=== PATIENT | female | born 1955 | race Caucasian/White ===

== ENCOUNTER → 2017-10-15 08:43 | Outpatient (CLI) | payer OTHER, SELFPAY ==
--- NOTE | 2017-10-15 09:00 | XR_ITS ---
XR DEXA axial skeleton HISTORY: ITS.REASON: OSTEOPOROSIS ORDERING PHYSICIAN: Jose L Stephens MD PATIENT AGE: 62 years COMPARISON: 06/17/2014 FINDINGS: The BMD measured at the AP Spine L1-L4 is 0.719 g/cm squared with a T score of -3.8. This is considered Osteoporotic according to the World Health Organization criteria. Fracture risk is high. Treatment is advised. The mean density of the hips has a T score of -3.6 also consistent with osteoporosis. The L-spine density has decreased by 4% and the T-spine density has decreased by 5.5% compared to the previous exam. IMPRESSION: Osteoporosis with high fracture risk. Recommend treatment and follow-up exam October 2018
== END ==
PROVIDERS: PCP Family Medicine; Visit Provider Family Medicine
DX: M81.0 Age-related osteoporosis without current pathological fracture (principal); Z13.820 Encounter for screening for osteoporosis
CPT/HCPCS: 77080

== ENCOUNTER → 2019-10-16 08:11 | Outpatient (CLI) | payer MEDICARE, BC, SELFPAY ==
--- NOTE | 2019-10-16 08:19 | MM_ITS ---
PROCEDURE: MM DIG SCREENING MAMM BI W/CAD CLINICAL INDICATION: SCREENING There is no personal or family history of breast cancer COMPARISON: [facility] DIGITAL MAMM-SCREEN BILATERAL from 06/19/2012 [facility] DIG MAMM-SCREEN SALOME from 06/23/2013 [facility] DIG MAMM-SCREEN SALOME from 07/12/2015 TECHNIQUE: Standard CC and MLO images and 3D Tomosynthesis was obtained. R2 CAD reviewed. FINDINGS: There is a diffusely dense and heterogenic parenchymal pattern lessening the sensitivity of mammography. Mirza images are most helpful in this type of breast parenchyma. There is no definite new or suspicious lesion in either breast. There are couple of benign-appearing calcifications in each breast. IMPRESSION: Diffusely dense parenchymal pattern with no suspicious lesions seen BI-RAD Category: 2 Benign Finding(s) FOLLOW-UP: 1YR 1 Year Follow-up (A letter has been sent to the patient regarding results of the study.) Dictated by: Dr. Farooq Rodriguez MD 10/18/2019 09:[address] Farooq Rodriguez MD in [place] 10/18/2019 09:04
== END ==
PROVIDERS: PCP Family Medicine; Visit Provider Family Medicine
DX: Z12.31 Encounter for screening mammogram for malignant neoplasm of breast (principal)
CPT/HCPCS: 77063; 77067

== ENCOUNTER → 2020-03-18 09:01 | Outpatient (CLI) | payer MEDICARE, BC, SELFPAY ==
--- NOTE | 2020-03-18 09:04 | XR_ITS ---
PROCEDURE: XR DEXA AXIAL SKELETON CLINICAL HISTORY: OSTEOPOROSIS COMPARISON: DEXAAX XR DEXA axial skeleton from 10/15/2017 FINDINGS: The right hip BMD is 0.492 with a t-score of -3.2. The left hip BMD is 0.480 with a t-score of -3.3. The lumbar spine BMD is 0.815 with a t-score of -2.1. IMPRESSION: This patient is considered osteoporotic according to the World Health Organization criteria. Fracture risk is high. Treatment is advised. Based on these results of follow-up exam is recommended in 1 year Dictated by: Jose Burdick MD 03/18/2020 18:23 Electronically signed by Jose Burdick MD in [place] 03/19/2020 09:41
== END ==
PROVIDERS: PCP Family Medicine; Visit Provider Physician Assistant
DX: M81.0 Age-related osteoporosis without current pathological fracture (principal)
CPT/HCPCS: 77080

== ENCOUNTER 2020-04-12 13:00 | Outpatient (CLI) | payer MEDICARE, BC, SELFPAY ==
[2020-04-12 13:30] VITALS: BP 122/71; PULSE 80; RESP 18; O2SAT 100
== END 2020-04-12 13:30 | disposition home or self-care (01) ==
LOC: INF 13:00
PROVIDERS: Visit Provider Physician Assistant
DX: M81.0 Age-related osteoporosis without current pathological fracture (principal)
CPT/HCPCS: 96372; J0897

== ENCOUNTER → 2020-09-14 07:00 | Outpatient (CLI) | payer MEDICARE, BC, SELFPAY ==
--- NOTE | 2020-09-14 | CA_ITS ---
APPROVED REPORT Exam: Exercise Treadmill Technologist: Emani Weller, Ht: 5 ft 4 in Wt: 126 lbs BSA: 1.61 m2 HR: 55 bpm BP: 128/68 mmHg Indications: Syncope, Collapse Stress Test Details Test: Leoncio HR Resting HR: 69 bpm Max Heart Rate (APMHR): 154 bpm Max HR Achieved: 169 bpm Target HR (85% APMHR): 130 bpm % of APMHR: 109 Recovery HR: 95 bpm BP Resting BP: 128/68 mmHg Max BP: 170/86 mmHg Recovery BP: 137.0/76.0 mmHg ECG Clinical Exercise duration: 09:42 min Highest Stage Achieved: Exercise capacity: 10.1 METs Stress ECG Conclusion Max Hr - 169; %of PM - 110%; Max B/P- 162/90; METS - 10.1; Test stopped due to SOA and fatigue. No chest pain. Second degree SA block Type II noted in recovery. Normal ST response to exercise. Conclusion - Second degree SA block Type II noted after exercise. otherwise normal GXT. GXT only - no images... Test Summary REST . . . . . . . Sitting REST . . . . . . . Standing REST 04:48 0.0 0.0 69 . 128/ 68 . . Stage 1 01:00 10.0 1.7 98 . . . . Stage 1 02:00 10.0 1.7 120 . . . . Stage 1 03:00 10.0 1.7 121 . 170/ 86 . . Stage 2 01:00 12.0 2.5 130 . . . . Stage 2 02:00 12.0 2.5 140 . . . . Stage 2 03:00 12.0 2.5 144 . 162/ 90 . . Stage 3 01:00 14.0 3.4 149 . . . . Stage 3 02:00 14.0 3.4 154 . . . . Stage 3 03:00 14.0 3.4 155 . 162/ 90 . . Stage 4 00:42 16.0 4.2 167 . . . Stop exercise at 09:42 RECOVERY 01:00 0.0 0.0 155 . 140/ 80 . . RECOVERY 02:00 0.0 0.0 129 . 140/ 80 . . RECOVERY 03:00 0.0 0.0 114 . 136/ 76 . . RECOVERY 04:00 0.0 0.0 105 . 136/ 76 . . RECOVERY 05:00 0.0 0.0 95 . 137/ 76 . . RECOVERY 05:26 0.0 0.0 96 . 137/ 76 . . Electronically signed by : Dustin Reese, 09/23/2020 20:58:47
--- NOTE | 2020-09-14 07:18 | CA_ITS ---
APPROVED REPORT EXAM: Comprehensive 2D, Doppler, and color-flow Echocardiogram Car Starter: Kasie Ballard RVT Ht: 5 ft 4 in Wt: 126lbs BSA: 1.61 BP: 120/80 mmHg Indications: SYNCOPE 2D Dimensions LVOT 2.31 cm (M/F) 1.5-2.5 M-Mode Dimensions RVDd 2.98 cm (0.9-2.6) LA Diam 2.99 cm (1.9-4.0) LVDd 4.38 cm (3.5-5.7) Ao Diam 3.07 cm (2.0-3.7) LVDs 3.18 cm (3.5-5.7) IVSd 1.14 cm (0.6-1.1) PWd 0.97 cm (0.6-1.1) EF (Teich) 53.60% FS 27.40% EDV (Teich) 86.80 mL ESV (Teich) 40.30 mL LV Diastology E Decel Time 150.00 (160-240 msec) E/A Ratio 0.8 MED E' 11.20 (< 7 cm/sec) E'/MED E' Ratio 3.86 (>14) LAT E' 14.10 (<10 cm/sec) E/LAT E' Ratio 3.06 (>14) Aortic Valve AI PHT 1343.00 ms Mitral Valve MV E Max Daniel. 43.00 (40-130 cm/s) MV A Velocity 52.00 (40-130 cm/s) E/A Ratio 0.83 MV Decel. Time 150.00 (160-240 ms) MV PHT 44.00 ms Pulmonary Valve PV Peak Velocity 73.00 (50-150 cm/s) Tricuspid Valve TR P. Velocity 214.00 cm/s RAP Estimate 10.00 mmHg RVSP 28.30 mmHg Left Ventricle Left atrium is mildly enlarged, left ventricle is normal size, mild concentric left ventricular hypertrophy, visually estimated ejection fraction 55% with no regional wall motion abnormality, grade 1 diastolic dysfunction seen without tissue Doppler evidence of raise left atrial pressure. Right Ventricle Right atrium is normal size, right ventricle is mildly enlarged with normal contractility. Atria Intra-atrial septum is intact, there is no flow across the interatrial septum. Aortic Valve Aortic valve is thickened and calcified leaflet continue to display mobility, there is no aortic stenosis, there is mild aortic insufficiency. Mitral Valve Mitral valve leaflets are minimally thickened, there is mild mitral regurgitation. Tricuspid Valve Tricuspid valve is grossly normal, there is mild tricuspid regurgitation, tricuspid regurgitation jet velocity is inadequate for calculation of the right ventricular systolic pressure. Pulmonic Valve Pulmonic valve is poorly visualized. Great Vessels Aortic root is normal size. Pericardium No significant pericardial effusion noted. Conclusion 1. Mildly enlarged left atrium, normal left ventricular size, mild concentric left ventricular hypertrophy, visually estimated ejection fraction 55% with no regional wall motion abnormality, grade 1 diastolic dysfunction seen without tissue Doppler evidence of raise left atrial pressure. 2. Thickened and calcified aortic valve without aortic stenosis, there is mild aortic insufficiency. 3. Mild mitral and tricuspid regurgitation. 4. No significant pericardial effusion noted. Electronically signed by : Cristobal Guthrie, 09/15/2020 06:11:20
[2020-09-14 07:30] LABS: Basophils # 0.1 K/mm3 (0-0.2); Basophils % 0.8 % (0.1-2.0); Eosinophils # 0.2 K/mm3 (0.0-0.4); Eosinophils % 3.3 % (0.1-12.0); Hematocrit 47.6 % (37.0-47.0); Hemoglobin 16.1 g/dL (12.2-16.2); Lymphocytes # 2.3 K/mm3 (0.7-4.5); Lymphocytes % 35.7 % (10-50); Mean Corpuscular HGB Conc 33.9 g/dL (31.8-35.4); Mean Corpuscular Hemoglobin 32.2 pg (27.0-31.2); Mean Platelet Volume 7.4 fl (7.4-10.4); Monocytes # 0.5 K/mm3 (0.1-1.0); Monocytes % 7.5 % (1.7-9.3); Neutrophils # 3.4 K/mm3 (1.8-7.8); Neutrophils % 52.6 % (37.0-80.0); Platelet Count 228 K/mm3 (142-424); Red Blood Count 5.02 M/mm3 (4.20-5.40); Red Cell Distribution Width 13.4 % (11.5-17.5); White Blood Count 6.5 K/mm3 (4.8-10.8)
[2020-09-14 07:40] LABS: Alanine Aminotransferase 41 U/L (12-78); Albumin Level 4.4 g/dl (3.5-5.0); Albumin/Globulin Ratio 1.3 (1.1-1.8); Alkaline Phosphatase 58 U/L (38-126); Anion Gap 8.3 mEq/L (5-15); Aspartate Amino Transferase 82 U/L (14-36); Bilirubin,Total 0.6 mg/dl (0.2-1.3); Blood Urea Nitrogen 20 mg/dl (7-17); Calcium 9.5 mg/dl (8.4-10.2); Carbon Dioxide 32 mmol/L (22.0-30.0); Chloride 101 mmol/L (98-107); Chol/HDL Ratio 3.3 (1-3.5); Cholesterol 204 mg/dl (140-200); Estimated Glomerular Filt Rate 72 ml/min (>60); GFR (African American) 87 ML/MIN (>60); Globulin 3.4 g/dL (1.3-3.2); Glucose 105 mg/dl (74-100); HDL Cholesterol 62 mg/dl (40-60); Potassium 4.3 mmoL/L (3.5-5.1); Sodium 137 mmol/L (136-145); Total Protein,Serum 7.8 g/dl (6.3-8.2); Triglycerides 94 mg/dl (30-150); VLDL Cholesterol 19 mg/dL (0-40)
[2020-09-14 07:51] LABS: Direct LDL Cholesterol 101.43 mg/dL (100-129)
[2020-09-14 08:13] LABS: Thyroid Stimulating Hormone 4.44 uIU/mL (0.465-4.68)
== END ==
PROVIDERS: PCP Family Medicine; Visit Provider Family Medicine
DX: R55 Syncope and collapse (principal); E78.00 Pure hypercholesterolemia, unspecified; I49.9 Cardiac arrhythmia, unspecified; I25.10 Atherosclerotic heart disease of native coronary artery without angina pectoris
CPT/HCPCS: 36415; 80053; 80061; 84443; 85025; 93017; 93306

== ENCOUNTER → 2020-09-21 09:20 | Outpatient (POV) | payer MEDICARE, BC, SELFPAY | PROVIDERS: Visit Provider Dermatology | DX: Z00.00 Encounter for general adult medical examination without abnormal findings (principal) ==

== ENCOUNTER → 2020-09-23 11:50 | Outpatient (CLI) | payer MEDICARE, BC, SELFPAY | PROVIDERS: PCP Family Medicine; Visit Provider Internal Medicine Cardiovascular Disease | DX: I35.1 Nonrheumatic aortic (valve) insufficiency (principal); R42 Dizziness and giddiness; R55 Syncope and collapse; R94.31 Abnormal electrocardiogram [ECG] [EKG] | CPT/HCPCS: 93270 ==

== ENCOUNTER → 2020-09-30 09:15 | Outpatient (CLI) | payer MEDICARE, BC, SELFPAY ==
--- NOTE | 2020-09-30 09:16 | CA_ITS ---
APPROVED REPORT [facility]: DRAIO Laterality: Bilateral Study Quality: Adequate Indications: dizziness with syncopal episode Doppler Spectral Velocity Analysis ECA (R) 93.00/18.90 cm/s ECA (L) 90.50/17.60 cm/s dICA (R) 88.60/36.50 cm/s dICA (L) 68.50/27.70 cm/s Kathy (R) 97.40/37.70 cm/s Kathy (L) 85.50/42.10 cm/s pICA (R) 75.50/30.90 cm/s pICA (L) 57.80/27.70 cm/s pCCA (R) 89.30/25.80 cm/s dCCA (L) 76.70/28.30 cm/s Vert (R) 41.50/17.60 cm/s pCCA (L) 82.30/28.30 cm/s ICA/CCA 1.08 Vert (L) 69.80/27.00 cm/s ICA/CCA 1.22 Findings No hemodynamically significant stenosis observed. Antegrade bilateral vertebral flow observed. Normal study with 0-20% stenosis noted bilaterally with tortuosity of bilateral distal Internal carotid arteries. Left thyroid nodule and enlargement. Conclusion No hemodynamically significant stenosis observed. Antegrade bilateral vertebral flow observed. Normal study with 0-20% stenosis noted bilaterally with tortuosity of bilateral distal Internal carotid arteries. Left thyroid nodule and enlargement. Dedicated thyroid ultrasound may provide further evaluation Electronically signed by : Jose Burdick MD 09/30/2020 18:58:14
== END ==
PROVIDERS: PCP Family Medicine; Visit Provider Internal Medicine Cardiovascular Disease
DX: I35.1 Nonrheumatic aortic (valve) insufficiency (principal); R42 Dizziness and giddiness; R55 Syncope and collapse; R94.31 Abnormal electrocardiogram [ECG] [EKG]
CPT/HCPCS: 93880

== ENCOUNTER → 2020-09-30 10:08 | Outpatient (CLI) | payer SELFPAY ==
--- NOTE | 2020-09-30 10:09 | CT_ITS ---
PROCEDURE: CT HEART W CALCIUM SCORE CLINICAL HISTORY: eval for cad COMPARISON: No exams were available for comparison TECHNIQUE: Axial images obtained with sagittal and coronal reformats. All CT scans at the facility use one or more dose reduction, viz: automated exposure control, ma/kV adjustment per patient size (including targeted exams where dose is matched to indication, i.e. head), or iterative reconstruction technique. FINDINGS: Coronary artery calcium score is 0. No identifiable calcific atherosclerotic plaque with very low cardiovascular disease risk. Incidental note is made of a 10 mm hypodensity in the right hepatic lobe nonspecific. IMPRESSION: No identifiable calcific atherosclerotic plaque with very low cardiovascular disease risk Dictated by: Jose Burdick MD 10/01/2020 12:50 Jose Burdick MD in [place] 10/01/2020 12:50
== END ==
PROVIDERS: PCP Family Medicine; Visit Provider Internal Medicine Cardiovascular Disease
DX: Z13.6 Encounter for screening for cardiovascular disorders (principal); R42 Dizziness and giddiness; I35.1 Nonrheumatic aortic (valve) insufficiency; R55 Syncope and collapse; R94.31 Abnormal electrocardiogram [ECG] [EKG]
CPT/HCPCS: 75571

== ENCOUNTER 2020-10-13 09:45 | Outpatient (CLI) | payer MEDICARE, BC, SELFPAY ==
[2020-10-13 10:15] VITALS: BP 119/70; PULSE 74; RESP 18; TEMP 36.7; O2SAT 98
== END 2020-10-13 10:30 | disposition home or self-care (01) ==
LOC: INF 09:55
PROVIDERS: Visit Provider Physician Assistant
DX: M81.0 Age-related osteoporosis without current pathological fracture (principal)
CPT/HCPCS: 96372; J0897

== ENCOUNTER → 2020-10-18 10:59 | Outpatient (CLI) | payer MEDICARE, BC, SELFPAY ==
--- NOTE | 2020-10-18 11:01 | US_ITS ---
PROCEDURE: US THYROID CLINICAL INDICATION: THYROID NODULE Thyroid nodule seen on recent carotid ultrasound COMPARISON: US CA CAROTID DUPLEX BI from 09/30/2020 FINDINGS: Right lobe: The right of the thyroid gland is small. There is a 5 millimeter by 6 millimeter x 4 millimeter isoechoic choose mildly hypoechoic nodule in the posterior aspect of the right lobe of the thyroid gland. This could represent a parathyroid. There is a 3 millimeter x 4 millimeter x 2 millimeter cystic lesion in the right lobe of the thyroid gland. Left lobe: Left lobe is borderline small in size. There is a 1.8 x 1.1 x 1.7 centimeter isoechoic high echogenicity nodule with small and cystic components. The posterior margin is not well visualized on ultrasound. There are no echogenic foci. There is 1 area marked hypoechogenicity on transverse image. The appearance is consistent with TI-RAD 3, mildly suspicious. Fine needle aspiration biopsy is recommended for mildly suspicious nodules greater than or equal to 2.5 centimeters in size. Follow-up is recommended for nodules greater than or equal to 1.5 centimeters in size at 1, 3, and 5 years to monitor for development of additional suspicious findings.. There is a 1.9 x 1.4 by 2.0 centimeter heterogeneous nodule with lobular margins and the regional area of marked hypoechogenicity. There is internal blood flow. This appearance is consistent with Ti- RADS 4, moderately suspicious, fine-needle aspiration biopsy is recommended. Markedly heterogeneous nodule with internal blood flow and lobulated margins small areas of marked hypoechogenicity versus fluid. Isthmus: Normal IMPRESSION: 1. There is a 1.9 by 1.4 x 2.0 centimeter moderately suspicious nodule in the left lobe of the thyroid gland. Fine needle aspiration biopsy is recommended. 2. There is a 1.8 x 1.1 x 1.7 Centimeter mildly suspicious nodule in the left lobe of the thyroid gland. Ultrasound follow-up is recommended as described above. 3. The right thyroid lobe is smaller than normal. 4. No additional suspicious thyroid nodules. Dictated by: Shauna Cristobal MD 10/18/2020 18:11 Shauna Cristobal MD in [place] 10/18/2020 18:11
== END ==
PROVIDERS: PCP Family Medicine; Visit Provider Nurse Practitioner Family
DX: E04.1 Nontoxic single thyroid nodule (principal)
CPT/HCPCS: 76536

== ENCOUNTER → 2020-11-09 09:32 | Outpatient (CLI) | payer MEDICARE, BC, SELFPAY ==
--- NOTE | 2020-11-09 09:43 | US_ITS ---
PROCEDURE: US FNA THYROID CLINICAL INDICATION: LT THYROID NODULE COMPARISON: US US THYROID from 10/18/2020 FINDINGS: Pre biopsy ultrasound demonstrating 2 dominant nodules on the left. Following time-out procedure and obtaining informed consent under aseptic conditions and local anesthesia with 1 percent lidocaine nodule A in the lower pole was sampled. Three passes were made with 21 gauge needle. Then, nodule B with sampled in the upper pole. Three samples were obtained with 21 gauge needle. The patient tolerated the procedure well without evidence of immediate complication. Cytology: Both nodules A and B were negative for malignancy consistent with a benign follicular nodules IMPRESSION: Uneventful ultrasound-guided FNA of left thyroid nodules x2 both negative for malignancy. Dictated by: Jose Burdick MD 11/26/2020 09:10 Jose Burdick MD in [place] 11/26/2020 09:10
== END ==
PROVIDERS: PCP Family Medicine; Visit Provider Otolaryngology
DX: R22.1 Localized swelling, mass and lump, neck (principal); E04.1 Nontoxic single thyroid nodule
CPT/HCPCS: 10005; 76536; 88173

== ENCOUNTER → 2021-03-28 13:17 | Outpatient (CLI) | payer MEDICARE, BC, SELFPAY ==
--- NOTE | 2021-03-28 13:17 | US_ITS ---
PROCEDURE: US THYROID CLINICAL INDICATION: thyroid nodule follow-up thyroid nodule Follow-up FNA COMPARISON: US US THYROID from 10/18/2020 US US FNA THYROID from 11/09/2020 FINDINGS: Right lobe is 3.7 x 1.9 x 2.6 cm. In the upper pole there is a stable 6 mm heterogeneous nodule and a 7 mm slightly hypoechoic nodule both appear stable. The left lobe is 4 x 2 by 2.6 cm. Heterogeneous nodule noted in the upper pole at 19 x 11 mm unchanged.. In the lower pole there is a 2.2 x 1.8 cm nodule heterogeneous. Not significantly changed. IMPRESSION: No change bilateral thyroid nodules Dictated by: Jose Burdick MD 03/28/2021 18:09 Jose Burdick MD in [place] 03/28/2021 18:09
== END ==
PROVIDERS: PCP Family Medicine; Visit Provider Otolaryngology
DX: E04.1 Nontoxic single thyroid nodule (principal)
CPT/HCPCS: 76536

== ENCOUNTER 2021-04-12 10:29 | Outpatient (CLI) | payer MEDICARE, BC, SELFPAY ==
[2021-04-12 10:41] VITALS: BP 100/61; PULSE 80; RESP 16; TEMP 36.7; O2SAT 96
== END 2021-04-12 10:45 | disposition home or self-care (01) ==
LOC: INF 10:29
PROVIDERS: Visit Provider Family Medicine
DX: M81.0 Age-related osteoporosis without current pathological fracture (principal)
CPT/HCPCS: 96372; J0897

== ENCOUNTER → 2021-08-30 09:43 | Outpatient (CLI) | payer MEDICARE, OTHER, SELFPAY | PROVIDERS: PCP Family Medicine; Visit Provider Nurse Practitioner | DX: U07.1 COVID-19 (principal) | CPT/HCPCS: C9803; U0003; U0005 ==

== ENCOUNTER → 2021-09-01 08:10 | Outpatient (CLI) | payer MEDICARE, OTHER, SELFPAY ==
[2021-09-01] VITALS (9 sets, daily range): BP systolic 108–129; BP diastolic 58–84; PULSE 57–80; RESP 16; O2SAT 97–99
== END ==
PROVIDERS: PCP Family Medicine; Visit Provider Family Medicine
DX: U07.1 COVID-19 (principal); Z23 Encounter for immunization
CPT/HCPCS: 96365

== ENCOUNTER 2021-10-17 15:16 | Outpatient (CLI) | payer MEDICARE, OTHER, SELFPAY ==
[2021-10-17 15:31] VITALS: BP 136/78; PULSE 79; RESP 18; TEMP 36.6; O2SAT 98
== END 2021-10-17 15:31 | disposition home or self-care (01) ==
LOC: INF 15:17
PROVIDERS: PCP Family Medicine; Visit Provider Family Medicine
DX: M81.0 Age-related osteoporosis without current pathological fracture (principal)
CPT/HCPCS: 96372; J0897

== ENCOUNTER → 2022-04-13 09:13 | Outpatient (CLI) | payer MEDICARE, OTHER, SELFPAY ==
--- NOTE | 2022-04-13 09:16 | XR_ITS ---
FINAL REPORT CLINICAL HISTORY: osteoporosis COMPARISON: March 18, 2020 FINDINGS: DEXA BONE DENSITY AXIAL SKELETON Using L1-4, the bone mineral density of the spine is 0.961 g/cm2, corresponding to T-score of -0.8. Previously measured 0.815 g/cm2, corresponding to T-score of -2.1. Using the left hip, the bone mineral density of the femoral neck is 0.468 g/cm2, corresponding to a T-score of -3.4. Previously measured 0.480 g/cm2, corresponding to T-score of -3.3. NOTE: T-score: Standard deviation compared with peak bone mass of young adult mean. *Following the recommendations of the International Society of Bone densitometry, classification of hip BMD is based on the lower of two T-scores; total hip or femoral neck. IMPRESSION: Osteoporosis: Lowest T-score is at or below -2.5. This patient's T-score meets the World Health Organization criteria for osteoporosis. Reviewed, Interpreted and Dictated by Brian Mills III, MD Transcribed by Mónica Krishna Authenticated and [facility]
== END ==
PROVIDERS: PCP Family Medicine; Visit Provider Family Medicine
DX: M81.0 Age-related osteoporosis without current pathological fracture (principal); Z78.0 Asymptomatic menopausal state
CPT/HCPCS: 77080

== ENCOUNTER 2022-04-17 16:14 | Outpatient (CLI) | payer MEDICARE, OTHER, SELFPAY ==
[2022-04-17 16:25] VITALS: BP 156/95; PULSE 58; RESP 18; TEMP 36.6; O2SAT 99
--- NOTE | 2022-04-17 16:40 | XR_ITS ---
PROCEDURE INFORMATION: Exam: XR Left Knee Exam date and time: 04/17/2022 4:41 PM Age: 66 years old Clinical indication: Pain; Knee; Left; Additional info: Injury left knee, C/O left medial knee pain TECHNIQUE: Imaging protocol: Radiologic exam of the Left knee. Views: 3 views. COMPARISON: No relevant prior studies available. FINDINGS: Minimal osteoarthritis of the medial tibiofemoral compartment, manifested predominantly by tiny marginal osteophyte formation. Mild osteoarthritis at the patellofemoral compartment, manifested by tiny marginal osteophyte formation. Joint spaces are overall well preserved. No acute fracture, dislocation, or aggressive skeletal lesion. No joint effusions. No significant soft tissue swelling. IMPRESSION: 1. 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 2. No acute skeletal pathology.
== END 2022-04-17 16:25 | disposition home or self-care (01) ==
LOC: INF 16:15
PROVIDERS: PCP Family Medicine; Visit Provider Family Medicine
DX: M25.562 Pain in left knee (principal); M81.0 Age-related osteoporosis without current pathological fracture
CPT/HCPCS: 73562; 96372; J0897

== ENCOUNTER → 2022-07-18 13:58 | Outpatient (POV) | payer MEDICARE, OTHER, SELFPAY | PROVIDERS: Visit Provider Dermatology | DX: Z00.00 Encounter for general adult medical examination without abnormal findings (principal) ==

== ENCOUNTER → 2022-07-28 09:43 | Outpatient (CLI) | payer MEDICARE, OTHER, SELFPAY ==
--- NOTE | 2022-07-28 09:47 | MM_ITS ---
PROCEDURE INFORMATION: Exam: MG Bilateral Screening 3D Mammography Exam date and time: 07/28/2022 9:38 AM Age: 67 years old Clinical indication: Screening mammogram TECHNIQUE: Imaging protocol: Bilateral Screening tomosynthesis and 2D mammography including computer-aided detection (CAD) when performed. COMPARISON: MG MM DIG SCREENING MAMM BI W/CAD 10/16/2019 8:30 AM FINDINGS: MAMMOGRAPHY: Breast composition: The breast is heterogeneously dense, which may obscure small masses. Mass: None. Architectural distortion: No new or suspicious architectural distortion. Calcifications: No new or suspicious calcifications are present Asymmetric density: No new or suspicious asymmetric density is present Skin thickening: None. Axillary adenopathy: None. IMPRESSION: No mammographic evidence of malignancy. Recommend annual screening mammography unless otherwise clinically indicated. ASSESSMENT: BI-RADS category 1: Negative
== END ==
PROVIDERS: PCP Family Medicine; Visit Provider Family Medicine
DX: Z12.31 Encounter for screening mammogram for malignant neoplasm of breast (principal)
CPT/HCPCS: 77063; 77067

== ENCOUNTER 2022-10-23 09:40 | Outpatient (CLI) | payer MEDICARE, OTHER, SELFPAY ==
[2022-10-23 09:50] VITALS: BP 135/77; PULSE 75; RESP 18; O2SAT 99
== END 2022-10-23 10:00 | disposition home or self-care (01) ==
LOC: INF 09:41
PROVIDERS: PCP Family Medicine; Visit Provider Family Medicine
DX: M81.0 Age-related osteoporosis without current pathological fracture (principal)
CPT/HCPCS: 96372; J0897

== ENCOUNTER → 2023-04-30 08:52 | Outpatient (CLI) | payer MEDICARE, OTHER, SELFPAY ==
--- NOTE | 2023-04-30 08:54 | XR_ITS ---
FINAL REPORT CLINICAL HISTORY: POST MENOPAUSAL COMPARISON: 04/13/2022 FINDINGS: Using L1-4, the bone mineral density of the spine is 1.002 g/cm2, corresponding to T-score of -0.4, within normal limits but abnormally elevated likely secondary to hypertrophic changes. Previously 0.961 g/cm? with T score of -0.8. Using the left hip, the bone mineral density of the femoral neck is 0.472 g/cm2, corresponding to a T-score of -3.4, consistent with osteoporosis. Previously 0.468 g/cm? with T score of -3.4. Using the right hip, the bone mineral density of the femoral neck is 0.521 g/cm2, corresponding to a T-score of -3.0, consistent with osteoporosis. Previously 0.501 g/cm? with a T score of -3.1. FRAX not reported because patient is being treated for osteoporosis. NOTE: T-score: Standard deviation compared with peak bone mass of young adult mean. *Following the recommendations of the International Society of Bone densitometry, classification of hip BMD is based on the lower of two T-scores; total hip or femoral neck. IMPRESSION: Diminished bone mineral density consistent with osteoporosis. Reviewed, Interpreted and Dictated by Neil Rebollar MD Transcribed by Alexa Cornejo Authenticated and [facility]
== END ==
PROVIDERS: PCP Family Medicine; Visit Provider Family Medicine
DX: M81.0 Age-related osteoporosis without current pathological fracture (principal)
CPT/HCPCS: 77080

== ENCOUNTER 2023-05-08 09:19 | Outpatient (CLI) | payer MEDICARE, OTHER, SELFPAY ==
[2023-05-08 09:32] VITALS: BP 108/68; PULSE 68; RESP 18; TEMP 36.5; O2SAT 99
== END 2023-05-08 09:45 | disposition home or self-care (01) ==
LOC: INF 09:20
PROVIDERS: PCP Family Medicine; Visit Provider Family Medicine
DX: M81.0 Age-related osteoporosis without current pathological fracture (principal)
CPT/HCPCS: 96372; J0897

== ENCOUNTER → 2023-07-31 10:05 | Outpatient (CLI) | payer MEDICARE, OTHER, SELFPAY ==
--- NOTE | 2023-07-31 10:09 | MM_ITS ---
PROCEDURE INFORMATION: Exam: MG Bilateral Screening 3D Mammography Exam date and time: 07/31/2023 10:00 AM Age: 68 years old Clinical indication: Screening examination TECHNIQUE: Imaging protocol: Bilateral Screening tomosynthesis and 2D mammography including computer-aided detection (CAD) when performed. COMPARISON: 1. MG MM DIG SCREENING MAMM BI W/CAD 07/28/2022 9:38 AM 2. MG MM DIG SCREENING MAMM BI W/CAD 10/16/2019 8:30 AM 3. MG DMSB DIG MAMM-SCREEN SALOME 07/12/2015 5:21 PM 4. MG DMSB DIG MAMM-SCREEN [facility]OME 06/23/2013 5:17 PM FINDINGS: MAMMOGRAPHY: Breast composition: The breast is heterogeneously dense, which may obscure small masses. Mass: None. Architectural distortion: No new or suspicious architectural distortion. Calcifications: No new or suspicious calcifications are present Asymmetric density: No new or suspicious asymmetric density is present Skin thickening: None. Axillary adenopathy: None. IMPRESSION: No mammographic evidence of malignancy. Recommend annual screening mammography unless otherwise clinically indicated. ASSESSMENT: BI-RADS category 1: Negative
== END ==
PROVIDERS: PCP Family Medicine; Visit Provider Family Medicine
DX: Z12.31 Encounter for screening mammogram for malignant neoplasm of breast (principal)
CPT/HCPCS: 77063; 77067

== ENCOUNTER → 2023-07-31 14:06 | Outpatient (POV) | payer MEDICARE, OTHER, SELFPAY | PROVIDERS: PCP Family Medicine; Visit Provider Dermatology | DX: Z00.00 Encounter for general adult medical examination without abnormal findings (principal) ==

== ENCOUNTER → 2023-08-16 10:39 | Outpatient (CLI) | payer MEDICARE, OTHER, SELFPAY ==
--- NOTE | 2023-08-16 10:44 | XR_ITS ---
FINAL REPORT CLINICAL HISTORY: Hammertoes, right foot COMPARISON: None FINDINGS: RIGHT FOOT 3 views of the right foot were obtained. There is no acute fracture or dislocation. There is moderate hallux valgus deformity. There are hypertrophic changes of the first MTP. There is a mild plantar spur. There is minimal hammertoe deformity of the second and third digits. Soft tissues are unremarkable. IMPRESSION: Moderate hallux valgus deformity and minimal hammertoe deformity second and third digits. No acute bony abnormality. Reviewed, Interpreted and Dictated by Neil Rebollar MD Transcribed by Alexa Cornejo Authenticated and [facility]
--- NOTE | 2023-08-16 10:44 | XR_ITS ---
FINAL REPORT CLINICAL HISTORY: Hammertoes left foot COMPARISON: None FINDINGS: LEFT FOOT Three views of the left foot demonstrate no acute fracture or dislocation. There is moderate hallux valgus deformity. There are hypertrophic changes of the first metatarsal. There is a small plantar spur. There is minimal hammertoe deformity of the second digit. The soft tissues are unremarkable. IMPRESSION: Moderate hallux valgus and minimal hammertoe second digit. No acute bony abnormality. Reviewed, Interpreted and Dictated by Neil Rebollar MD Transcribed by Alexa Cornejo Authenticated and [facility]
== END ==
PROVIDERS: PCP Family Medicine; Visit Provider Podiatrist
DX: M20.41 Other hammer toe(s) (acquired), right foot (principal); M20.42 Other hammer toe(s) (acquired), left foot
CPT/HCPCS: 73630

== ENCOUNTER 2023-11-06 09:16 | Outpatient (CLI) | payer MEDICARE, OTHER, SELFPAY ==
[2023-11-06 09:30] VITALS: BP 122/79; PULSE 84; RESP 18; O2SAT 100
[2023-11-06] MEDS: DENOSUMAB 60 MG/ML SYRINGE SQ (09:30)
== END 2023-11-06 09:40 | disposition home or self-care (01) ==
LOC: INF 09:16
PROVIDERS: PCP Family Medicine; Visit Provider Family Medicine
DX: M81.0 Age-related osteoporosis without current pathological fracture (principal)
CPT/HCPCS: 96372; J0897

== ENCOUNTER 2024-05-02 08:43 | Outpatient (CLI) | payer MEDICARE, OTHER, SELFPAY ==
--- NOTE | 2024-05-02 08:46 | XR_ITS ---
FINAL REPORT TECHNIQUE: Bone densitometry calculations of the lumbar spine and left hip were obtained. CLINICAL HISTORY: SCREENING COMPARISON: 04/30/2023 FINDINGS: Using L1-4, the bone mineral density of the spine is 1.032 g/cm2, corresponding to T-score of -0.1. Using the left hip, the bone mineral density of the femoral neck is 0.477 g/cm2, corresponding to a T-score of -3.4. NOTE: T-score: Standard deviation compared with peak bone mass of young adult mean. *Following the recommendations of the International Society of Bone densitometry, classification of hip BMD is based on the lower of two T-scores; total hip or femoral neck. IMPRESSION: Diminished bone mineral density of the left hip consistent with osteoporosis. Normal bone mineral density of the lumbar spine, although this likely is artificially elevated secondary to dense sclerosis within the lumbar spine. Reviewed, Interpreted and Dictated by Neil Rebollar MD Transcribed by Salina Austin Authenticated and [facility]
== END 2024-05-02 23:59 | disposition home or self-care (01) ==
LOC: RAD 08:44
PROVIDERS: PCP Family Medicine; Visit Provider Family Medicine
DX: M81.0 Age-related osteoporosis without current pathological fracture (principal)
CPT/HCPCS: 77080

== ENCOUNTER 2024-07-29 10:14 | Outpatient (CLI) | payer MEDICARE, OTHER, SELFPAY ==
--- NOTE | 2024-07-29 10:21 | XR_ITS ---
FINAL REPORT CLINICAL HISTORY: foot pain mainly at MTP/tarsals area, dorsal surface COMPARISON: 08/16/2023 FINDINGS: AP, oblique and lateral views of the right foot were obtained. There is no acute fracture or dislocation. There is advanced degenerative disease of the first metatarsophalangeal joint with hallux valgus deformity. There is no acute soft tissue abnormality. IMPRESSION: Degenerative joint disease with hallux valgus deformity. No acute abnormality. Reviewed, Interpreted and Dictated by Linda Mejia MD Transcribed by Ly Kidd Authenticated and [facility]
== END 2024-07-29 23:59 | disposition home or self-care (01) ==
LOC: RAD 10:16
PROVIDERS: PCP Family Medicine; Visit Provider Podiatrist
DX: M79.671 Pain in right foot (principal)
CPT/HCPCS: 73630

== ENCOUNTER 2024-08-18 15:34 | Outpatient (CLI) | payer MEDICARE, OTHER, SELFPAY ==
--- NOTE | 2024-08-18 15:35 | MR_ITS ---
FINAL REPORT TECHNIQUE: Multiplanar MR of the foot without gadolinium enhancement. CLINICAL HISTORY: Right Foot Pain FINDINGS: Marrow signal: Nonspecific, benign-appearing cystic lesion of the calcaneus measuring 12 mm. Remaining marrow signal is normal. No evidence of stress fracture. Joints: Moderate degenerative changes at the first MTP joint. Mild degenerative changes of the hindfoot. Remaining joints normal. Tendons:Visualized tendons are unremarkable Ligaments:Major ligaments intact. Lisfranc ligament intact. Plantar Fascia: No evidence of tear No cystic or soft tissue mass. IMPRESSION: 1. Scattered degenerative changes. 2. No evidence of stress fracture. 3. No evidence of plantar fasciitis. Reviewed, Interpreted and Dictated by Jonna Meier MD Transcribed by Carolee Rodgers Authenticated and [facility]
== END 2024-08-18 23:59 | disposition home or self-care (01) ==
LOC: RAD 15:35
PROVIDERS: PCP Family Medicine; Visit Provider Podiatrist
DX: M79.671 Pain in right foot (principal)
CPT/HCPCS: 73718

== ENCOUNTER 2025-06-15 11:50 | Outpatient (CLI) | payer MEDICARE, OTHER, SELFPAY ==
--- OUTSIDE RECORDS SUMMARY | 2024-01-14 05:15 | XMS_ITS ---
Author Organization [facility] Address [address] [facility] [address] [place] [id number] Care Team Providers Care Manager Care Name Role Phone Jose L Stephens Primary Care Provider [phone] Allergies No Known Allergies Results Component Value [...] [address] [place] [id number] 01/14/2024 Jose L Stephens Acute UTI N39.0 [...] * SHA MELO LDOB:1955 (70 yo F)Acc No.[id number]:01/14/2024 Progress Notes Patient: Gerald JACQUES SHA Montez Provider: Jacob Stephens M.D. :1955 A ge:68 Y S ex:Female Date:01/14/2024 Address:[address] [place] [address] [place], [place], [id number] Subjective: * Chief Complaints: * 1 . [...] Procedure Codes: 8 1002 Urinalysis, no micro, 536[address] SPECIMEN HANDLING * Follow Up: p rn * Images: Billing Information: * Visit Code: 33925 Office Visit, Est Pt., Level 3. * Procedure Codes: 46060 Urinalysis, no micro. 42507 SPECIMEN HANDLING. * Electronic signature of Katya Stephens MD on 06/15/2025 at 11:54 AM EDT Sign off status: Pending * Provider: Jacob Stephens M.D. Date: 0 01/14/2024 Generated for Ty mott/uYe/Emmieitting on: 1 11:54 AM EDT History and Physical Notes * [...]
--- OUTSIDE RECORDS SUMMARY | 2025-04-06 06:15 | XMS_ITS ---
Author Organization [facility] Address [address] [facility] [address] [facility] [address] [place] [id number] Care Team Providers Care Managed Care Specialist Name Role Phone Jose L Stephens Primary Care Provider [phone] Krysta Meza Unavailable [phone] Allergies Allergen (clinical drug ingredient) Drug/Non Drug Allergy documented on EMR Reaction Allergy Type Onset Date Status Substance with sulfonamide structure and antibacterial mechanism of action (substance) Sulfa Antibiotics Unknown Drug Allergy Active Results Component Value Reference Range Notes Urinalysis - Inhouse Reviewed date:04/06/2025 02:46:16 PM Interpretation: Performing Lab: Notes/Report: Color/Clarity clear yellow Leuk trace Nitrite neg Urobili 3.2 Protein neg pH 6.5 Blood trace- intact Sp. Gr. 1.010 Ketone neg Bili neg Gluc neg P-Culture, Urine Reviewed date:04/09/2025 09:55:48 AM Interpretation:Abnormal Performing Lab: Notes/Report: Test performed by [facility], [employer] [address] [place] [address] , [place] [address] Marcial Byers MD, Lens Silverer CLIA: [id number] Specimen Source Urine - Void Culture, Urine See Below See Microbiol ogy Report Klebsiella pneumoniae >100,000 CFU/ml Klebsiella pneumoniae Sensitivity Panel See Below _ Organism K.pneum Antibiotic INTERP _ Amikacin S Ampicillin R Aztreonam S Cefepime S Cefoxitin S Ceftazidime S Ceftriaxone S Cefuroxime S Ciprofloxacin S Ertapenem S Gentamicin S Imipenem S Levofloxacin S Meropenem S Nitrofurantoin R Piperacillin/Tazo S Tetracycline S Tobramycin S Trimeth/Sulfa S S=SUSCEPTIBLE I=INTERMEDIATE R=RESISTANT REASON FOR VISIT poss UTI, Due for Dexa and mammogram Medications Medication SIG (Take, Route, Frequency, Duration) Notes Start Date End Date Status Vitamin K2 WITH CALCIUM 100 MCG 1 TAB(S) ORALLY ONCE A DAY Active Finacea 15 % 1 sherwin applied topica lly 2 times a day 04/23/2012 Active Vitamin C 500 MG 1 tab(s) orally once a day; Duration: 30 day(s) Active Multivitamin - 1 tab(s) orally once a day; Duration: 30 day(s) Active Vitamin D3 25 MCG (1000 UT) 1 tab(s) ora lly once a day 08/11/2014 Active Vital Signs Weight 127.4 lbs 04/06/2025 Blood pressure systolic 112 mm Hg 04/06/20 25 Blood pressure diastolic 70 mm Hg 025 Heart Rate 73 /min 04/06/2025 Height 64.25 in 04/06/2025 BMI 21.7 kg/m2 04/06/2025 Encounters Encounter Location Date Provider Diagnosis [facility] [address] [place] [id number] 04/06/2025 Krysta Meza UTI (lower urinary tract infection) N39.0 and BMI 21.0-21.9, adult Z68.21 Assessments Encounter Date Diagnosis (ICD Code) Assessment Notes Treatment Notes Treatment Clinical Notes Section Notes 04/06/2025 UTI (lower urinary tract infection) (ICD-10 - N39.0) Drink drink the water. If the culture comes back positive we will send in an antibiotic. Follows up w/ Urology to schedule surgery 04/06/2025 BMI 21.0-21.9, adult (ICD-10 - Z68.21) Plan Of Treatment Treatment Notes Assessment Notes UTI (lower urinary tract infection) Drin k drink the water. If the culture comes back positive we will send in an antibiotic. Follows up w/ Urology to schedule surgery Next Appt Details Follow Up: prn, Reason: Progress Notes * SHA MELO LDOB:1955 (70 yo F)Acc No.[id number]:04/06/2025 Progress Notes Patient: SHA COOK Provider: SONIA Jasso :1955 A ge:69 Y S ex:Female Date:04/06/2025 Address:[address] [place] [address], [facility], [id number] Pcp:Jose L Stephens Subjective: * Chief Complaints: * 1 . poss UTI. 2. Due for Dexa and mammogram. * HPI: U rology: found out recently has pelvic prolapse and had UTI in urology office. Was on Nitrofurantoin x5 days on 03/19.; plan is to sew uterus up. 69 year old female presents with c/o suprapubic pain. c/o Urine Odor. c/o UTI S he states that she had a UTI a few weeks ago. Pt states she thinks she still has one . Denies : frequent urination. D enies : burning sensation.?Denies : urgency. D enies : flank pain. D enies : incontinence. D enies : hematuria.?Denies : fever. * ROS: D ERMATOLOGY: no R jose. n o H ross. G ASTROENTEROLOGY: no N ausea. n o V omiting. n o D iarrhea.? U ROLOGY: no D ifficulty urinating. n o B lood in urine. * Medical History: O steoporosis, Rosacea. * Surgical History: P artial Hysterectomy 05/08/1997. * Family History: F ather: 83 yrs, [...] orally once a day , Taking Vitamin C 500 MG Tablet 1 tab(s) orally once a day , Taking Vitamin K2 WITH CALCIUM 100 MCG TABLET 1 TAB(S) ORALLY ONCE A DAY , Taking Finacea 15 % Gel 1 sherwin applied topically 2 times a day , Discontinued Os-Jeremiah Calcium + D3 500-5 MG-MCG Tablet 1 tab(s) orally bid , Discontinued Prolia 60 MG/ML Solution Prefilled Syringe as directed subcutaneously every 6 months , Discontinued valACYclovir HCl 1 GM Tablet 2 tablet Orally Two times a day , Discontinued metroNIDAZOLE 500 MG Tablet 1 tablet Orally Two times a day , Medication List reviewed and reconciled with the patient * Allergies: S ulfa Antibiotics. Objective: * Vitals: W t: 127.4, Temp: 97.6, BP: 112/70, HR: 73, Nurse: pe, Ht: 64.25, BMI:21.7. * Examination: G eneral Examination: General Appearance: N AD, appears healthy, alert, pleasant.?Heart: R RR. L ungs: n ormal, clear to auscultation. A bdomen: n ormal, bowel sounds present, nontender, soft, no organomegaly or masses, no s uprapubic tenderness. N eurologic Exam: a lert and oriented. S kin: n ormal, no rash. P eripheral pulses:?normal (2+) bilaterally. Assessment: * Assessment: 1. U TI (lower urinary tract infection) - N39.0 (Primary) 2 . B ID 21.0-21.9, adult - Z68.21 Plan: * Treatment: Value Reference Range C ulture, Urine See Below - * S pecimen Source Urine - Void - * S ensitivity Panel See Below - * K lebsiella pneumoniae >100,000 CFU/ml Klebsiella pneumoniae - * Izzy Hernandez 04/09/2025 09:55 :46 AM EDT > See phone encounter ?LAB: Urinalysis - Inhouse (Collection Date & Time - 04/06/2025)* Value Reference Range C olor/Clarity clear yellow * L euk trace * N itrite neg * U robili 3.2 * P rotein neg * p H 6.5 * B lood trace- intact * S p. Gr. 1.010 * K etone neg * B martha neg * G sonam neg * Char Jonse 04/06/2025 11:18 :07 AM EDT > Provider reviewed results while patient in office.Krysta Meza 04/06/2025 02:46:14 PM EDT > Notes: Drink drink the water. If the culture comes back positive we will send in an antibiotic. Follows up w/ Urology to schedule surgery?? * Procedure Codes: G 2211 Complex e/[place], [address] Urinalysis, no micro, 1036F TOBACCO NON- USER, G8420 BMI<30 AND >=22 CALC & DOCU, G8783 BP SCR PRFRM RCMDD DEFIND SCR INTVL, G8752 MOST RECENT SYSTOLIC BP < 140MM HG, G8754 MOST RECENT DIASTOLIC BP < 90MM HG * Follow Up: p rn * Images: Billing Information: * Visit Code: 19212 Office Visit, Est Pt., Level 3. * Procedure Codes: G2211 Complex e/[place]. [address] Urinalysis, no micro. 1036F TOBACCO NON-USER. G8420 BMI<30 AND >=22 CALC & DOCU. G8783 BP SCR PRFRM RCMDD DEFIND SCR INTVL. G8752 MOST RECENT SYSTOLIC BP < 140MM HG. G8754 MOST RECENT DIASTOLIC BP < 90MM HG. * Electronic signature of Lily Meza APRN on 06/15/2025 at 11:54 AM EDT Sign off status: Pending * Provider: SONIA Jasso Date: 0 04/06/2025 Generated for Ty mott/Yue/Emmieitting on: 1 11:54 AM EDT History and Physical Notes * HPI (History of Present Illness) Category Sub-Category Detail Notes Category Not es Urology frequent urination burning sensation flank pain suprapubic pain incontinence hematuria fever urgency Urine Odor UTI She states that she had a UTI a few weeks ago. Pt states she thinks she still has one Examination Category Sub-Category Detail Notes Category Not es General Examination Heart: RRR Lungs: normal, clear to aus cultation Abdomen: normal, bowel sounds present, nontender, soft, no organomegaly or masses, no suprapubic tenderness General Appearance: NAD, appears healthy , alert, pleasant Skin: normal, no rash Neurologic Exam: alert and oriented Peripheral pulses: normal (2+) bilatera lly
--- OUTSIDE RECORDS SUMMARY | 2025-04-14 07:20 | XMS_ITS | Encounter Summary ---
Author Organization [place] [address] Care Team Providers Care Core Man Name Role Phone Unavailable Primary Care Provider Unavailabl e Reason for Visit * In Office Procedure (Routine) - Authorization Not Needed Specialty Diagnoses / Procedures Referred By Rosalio t Referred To Contact Nurse Practitioner / Gynecology Diagnoses Frequency of micturition UDE Procedures ID COMPLX CYSTOMETRO W/VOID PRESS & URETHRAL PROFIL ID COMPLEX UROFLOMETRY ID EMG STDS ANAL/URTL SPHNCTR OTH/THN NDL ID VOID PRESSURE STUDIES INTRAABDOMINAL URODYNAMICS Karla Elder MD [address] [place] [address] Phone: tel: fax: Erin Candelario APRN [address] [place] [address] Phone: tel: fax: Referral ID Status Reason Start Date Expiration Date Visits Requested Visits Authorized [id number] Authorization Not Needed 04/14/2025 04/14/2026 1 1 Encounter Details Date Type Department Care Team (Latest Contact Info) Description 04/14/2025 7:20 AM EDT Procedure visit [facility] Urogynecology [address] [phone] Erin Candelario APRN [address] [place] [address] Female genital prolapse, unspecified type (Primary Dx); JACKIE (stress urinary incontinence, female); OAB (overactive bladder); Urinary frequency Social History Tobacco Use Types Packs/Day Years Used Date Smoking Tobacco: Never Smokeless Tobacco: Never Alcohol Use Standard Drinks/Week Comments Yes 3 (1 standard drink = 0.6 oz pur e alcohol) 3 beers a month Sexually Active Control Partners Comments Not Currently Comments No Sex and Gender Information Value Date Recorded Sex Assigned at Not on file Legal Sex Female 9:33 AM EDT Gender Identity Not on file Sexual Orientation Not on file documented as of this encounter Progress Notes * Erin Candelario APRN - 04/14/2025 7:20 AM EDT Images from the original note were not included. Urodynamic Procedure Note Renuka Mock 1955 Urodynamicist: Erin Candelario APRN Equipment: [employer] Brief History/Indication: Patient is a 69 y.o. female with subjective complaints of overactive bladder, prolapse, and stress incontinence who presents for an urodynamic evaluation. Office Fill Study: Catheter PVR = 400 mL UA cloudy DEAN OF GRADUATE STUDIES negative C&S pending Procedure: The patient was taken to the Urodynamics suite and a free urine flow was obtained followed by catheterization for residual urine. A double-lumen urodynamic catheter was introduced to the bladder for measuring bladder pressure, and for filling. EMG patch electrodes were placed perianally for recording activity of the anal sphincter. A vaginal cather was inserted to record the abdominal pressure. The entire process was displayed and analyzed using the [employer] Urodynamic machine and software. FINDINGS UroFlow: Urine Dip: normal Voided volume: 115 ml PVR: 150 ml Max flow: 8 ml/sec with an average flow rate of 2 ml/sec CMG: pump was not infusing at first, test restarted First sensation: 94 ml First degree: 204 ml Strong desire: 264 ml Max capacity: 346 ml Uninhibited detrusor contraction:yes Leak Point Pressures: CLPP 74 VLPP 122 cm/H2O at 150ml with cough, valsalva, (+) leak, reduction , and sitting CLPP 66 VLPP 36 cm/H2O at 346 ml (max) with cough, valsalva, (+) leak, reduction , and sitting Pressure voiding study: Maximum detrusor pressure at peak flow 23 cm/H2O Peak flow rate 11 ml/sec. Maximum abd pressure at peak flow 37 cm/H2O Flow time 1:19 sec. Maximum vesical pressure at peak flow 58 cm/H2O Voided volume 484 ml. Residual: (Max cap-voided) 0ml. Max Pdet: 31 MUCP: 27, 23, 22 EMG: correlates Assessment: 1) JACKIE with prolapse reduction 2) stage IV vault prolapse (document history of hysterectomy but patient denies) 3) moderate OAB *no longer SA; daughter Keyur present and supportive Plan: Consider consenting Renuka Mock for: Colpectomy (vaginal closure), posterior repair, levator plication, retropubic urethral mesh sling, cystoscopy - POSSIBLE hysteroscopy D&C (2 hours, general, outpatient, 6 weeks off lifting/bathing) - will need OAB medication post op - HOME catheter removal (cynthiana!) Karla Elder MD documented in this encounter Plan of Treatment Upcoming Encounters Date Type Department Care Team (Latest Contact Info) Description 07/14/2025 1:10 PM EST Hospital Encounter [facility] PERIOP [address] [place] [address] Karla Elder MD [address] [place] [id number] 07/14/2025 1:10 PM EST - 07/14/2025 3:35 PM EST Surgery [facility] PERIOP [address] [place] [address] Karla Elder MD [address] [place] [id number] TOTAL COLPECTOMY / COLPOCLESIS 08/25/2025 11:00 AM EST Office Visit [facility] Urogynecology [address] [phone] Erin Candelario APRN [address] [place] [address] Scheduled Procedures Name Priority Associated Diagnoses Date/Ti me TOTAL COLPECTOMY / COLPOCLESIS Female genital prolapse, unspecified type Cystocele, midline Rectocele JACKIE (stress urinary incontinence, female) Abnormal defecation 07/14/2025 1:10 PM EST POSTERIOR REPAIR (RECTOCELE REPAIR) Female genital prolapse, unspecified type Cystocele, midline Rectocele JACKIE (stress urinary incontinence, female) Abnormal defecation 07/14/2025 1:10 PM EST URETHROPEXY USING TENSION FREE VAGINAL TAPE VIA RETROPUBIC SPACE WITH CYSTOSCOPY Female genital prolapse, unspecified type Cystocele, midline Rectocele JACKIE (stress urinary incontinence, female) Abnormal defecation 07/14/2025 1:10 PM EST documented as of this encounter Procedures Procedure Name Priority Date/Time Associated Diagnosis Comments SEP URINALYSIS POC Routine 04/14/2025 7: 37 AM EDT Urinary frequency documented in this encounter Results * (ABNORMAL) SEP URINALYSIS POC (04/14/2025 7:37 AM EDT) UA Color POC Yellow Color 04/14/2025 7:40 AM EDT [facility] Appear POC Clear Clear 04/14/2025 7:40 AM EDT [facility] UROGYNECOLOGY [facility] UA Gluc POC Negative Negative mg/dL 04/14/2025 7:40 AM EDT [facility] Bili POC Negative Negative 04/14/2025 7:40 AM EDT [facility]A Ketones POC Negative Negative mg/dL 04/14/2025 7:40 AM EDT [facility] UA SG POC 1.015 1.001 - 1.035 no units 04/14/2025 7:40 AM EDT [facility] UROGYNECOLOGY [facility] UA Blood POC Trace-Intac t(A) Negative 04/14/2025 7:40 AM EDT [facility] UA pH POC 6.5 5.0 - 8.0 pH 04/14/2025 7:40 AM EDT [facility] UA Protein POC Negative Negative mg/dL 04/14/2025 7:40 AM EDT [facility] UA Urobilinogen POC 0.2 0.2, 1.0 04/14/2025 7:40 AM EDT [facility] UA Nitrite POC Negative Negative 04/14/2025 7:40 AM EDT [facility] Leuk Est POC Negative Negative 7:40 AM EDT [facility] Urine STRUCTURE OF URINARY TRACT PROPER / Unknown 04/14/2025 7:37 AM EDT 04/14/2025 7:40 AM EDT us Erin Candelario BONE GRINDER POINT OF CARE TEST ORDER TERNA Final Result [facility] [place] [address] documented in this encounter Visit Diagnoses Diagnosis Female genital prolapse, unspecified type- Primary JACKIE (stress urinary incontinence, female) Female stress incontinence OAB (overactive bladder) Hypertonicity of bladder Urinary frequency Female genital prolapse, unspecified type Cystocele, midline Rectocele JACKIE (stress urinary incontinence, female) Female stress incontinence Abnormal defecation documented in this encounter
--- OUTSIDE RECORDS SUMMARY | 2025-04-20 11:30 | XMS_ITS | Encounter Summary ---
Author Organization [place] [address] Care Team Providers Care Excellence Coach Name Role Phone Unavailable Primary Care Provider Unavailabl e Reason for Referral * (Routine) - Pending Review Specialty Diagnoses / Procedures Referred By Rosalio t Referred To Contact Diagnoses Cystocele, midline Stress incontinence Procedures AMB UROGYN SURGERY COMMUNICATION ORDER Karla Elder MD [address] [place] [address] Phone: tel: fax: Referral ID Status Reason Start Date Expiration Date V isits Requested Visits Authorized [id number] Pending Review 04/20/2025 04/20/2026 1 1 Encounter Details Date Type Department Care Team (Latest Contact Info) Description 04/20/2025 11:30 AM EDT Office Visit [facility] Uro[facility]necology [address] [phone] Karla Elder MD [address] [place] [address] Stress incontinence (Primary Dx); Cystocele, midline Social History Tobacco Use Types Packs/Day Years [...] as of this encounter Progress Notes * Karla Elder MD - 04/20/2025 11:30 AM EDT Images from the original note were not included. Surgery Consent Renuka Emili Mari Renuka Mock 1955 HPI: Patient is a 69 y.o. year old female here for follow up of incontinence and prolapse. Daughter Terapresent on phone today and supportive - question about history of hysterectomy cleared up. Patient admits she had her UTERUS removed, not her ovaries. Friend george present as well - to write everything down and be an extra set of eyes and ears. She presents for review of her bladder testing and for surgery consent. All prior notes reviewed indetail and patient's questions are answered in full. Patient has elevated first PVR. Patient has tried and failed therapy with hysterectomy and kegels and diet (see initial consultation note and Urodynamics testing note for details). Patients past medical, family and social histories were reviewed and updated. There were no changesexcept as noted. Assessment: mixed incontinence and prolapse Plan: Although patient presents to discuss the reasons for surgical consult, we also reviewed alternativetreatments for her pelvic floor condition. After counseling my patient today about the diagnosis and disease management face to face. We reviewed the disease pathophysiology and reviewed my anatomic drawings. Once all questions are addressed, the patient is consented for: Colpectomy (vaginal closure), posterior repair, levator plication, retropubic urethral mesh sling, cystoscopy (2 hours, general, outpatient, 6 weeks off lifting/bathing) - will need OAB medication post op - HOME catheter removal (jennifer!) She is informed of the risks, benefits, indications, and alternatives - including but not limited to: bleeding, blood transfusion, infection, damage to adjacent organs such as bladder, bowel, urethra, and ureters, chronic pelvic pain, dyspareunia, procedure failure, need for reoperation, de tania orworsening incontinence, urinary retention with need for long-term or permanent catheterization, fistula formation, 3-5% risk of mesh erosion or exposure (increased risk in diabetics and smokers), DVT, pulmonary embolism, anesthesia risks, pneumonia, and . Patient verbalized understanding to all and gave verbal and written consent to proceed. Patient notified of her responsibility for obtaining MEDICAL CLEARANCE for surgery by providing a pre-operative history and physical from her primary care physician within 30 days of surgery, including blood work and other necessary testing. All paperwork given to patient today including FMLA forms and notice of a fee for completing FMLA documents on her behalf. Reviewed expectations for recovery in detail. Time-Based Billing Statement I spent 45 minutes in the care of this patient on this calendar day. Activities performed during this time include: Reviewing labs, Reviewing imaging, Obtaining or reviewing history (separately obtained), Counselingand educating, Ordering procedures, Documenting clinical information in the EHR, and Care coordination The total time documented above did not include the following activities which were also performed on this calendar day: - printed UROS graphs Karla Elder MD [facility] Female Pelvic Medicine and Reconstructive Surgery [address] [place] [address] phone ext [phone] fax [email or web address] 04/20/25 7:26 AM documented in this encounter Miscellaneous Notes * Patient Instructions - Karla Elder MD - 04/20/2025 11:30 AM EDT Images from the original note were not included. documented in this encounter Plan of Treatment Upcoming Encounters Date Type Department Care Team (Latest Contact Info) Description 07/14/2025 1:10 PM EST Hospital Encounter [facility] PERIOP [address] [place] [address] Karla Elder MD [address] [place] [phone] 07/14/2025 1:10 PM EST - 07/14/2025 3:35 PM EST Surgery [facility]TT PERIOP [address] [place] [address] Karla Elder MD [address] [place] [address] [phone] TOTAL COLPECTOMY / COLPOCLESIS 08/25/2025 11:00 AM EST Office Visit [facility] [address] [phone] Erin Candelario, SHANIA [address] [place] [address] [phone] Scheduled Procedures Name Priority Associated Diagnoses Date/Ti [...] PM EST documented as of this encounter Visit Diagnoses Diagnosis Stress incontinence- Primary Female stress incontinence Cystocele, midline Female genital prolapse, unspecified type Cystocele, midline Rectocele JACKIE (stress urinary incontinence, female) Female stress incontinence Abnormal defecation documented in this encounter Orders Nursing Count Last Ordered Date First Orde red Date AMB UROGYN SURGERY COMMUNICATION ORDER 1 documented in this encounter
--- OUTSIDE RECORDS SUMMARY | 2025-06-15 11:54 | XMS_ITS | Encounter Summary ---
Author Organization [place] [address] Care Team Providers Care Publication Specialist Name Role Phone Unavailable Primary Care Provider Unavailabl e Reason for Visit * Reason Onset Date Comments Surgery Scheduling 04/22/2025 Encounter Details Date Type Department Care Team (Late st Contact Info) Description 04/22/2025 Telephone [facility] [address] [phone] Eli Beach LPN Surgery Scheduling Social History Tobacco Use Types Packs/Day Years [...] on file documented as of this encounter Miscellaneous Notes * Addendum Note - Eli Beach LPN - 04/23/2025 8:32 AM EDTAddended by: ELI BEACH on: 04/23/2025 08:32 AM Modules accepted: Orders * Telephone Encounter - Eli Beach LPN - 04/23/2025 8:26 AM EDT Discussed surgery date(s)/time(s) w/ Dr. Elder. Date: 07/14/25 (Patient request) Time: 1300 To be Scheduled: Colpectomy (vaginal closure), posterior repair, levator plication, retropubic urethral mesh sling, cystoscopy (2 hours, general, outpatient, 6 weeks off lifting/bathing) - HOME catheter removal *Advised need Pre-Op H/P within 30 days of surgery *Expect a call from [facility] *[employer] message sent * Telephone Encounter - Eli Beach LPN - 04/22/2025 3:08 PM EDT Spoke with patient to discuss surgery date(s)/time(s) w/ Dr. Elder. Patient is not home so she asked if she can call me back today later when she is home. She asked when I leave today, I advised 1600, if that doesn't work, I will be here [phone] tomorrow To be Scheduled: Colpectomy (vaginal closure), posterior repair, levator plication, retropubic urethral mesh sling, cystoscopy (2 hours, general, outpatient, 6 weeks off lifting/bathing) - HOME catheter removal documented in this encounter Plan of Treatment Upcoming Encounters Date Type Department Care Team (Latest Contact Info) Description 07/14/2025 1:10 PM EST Hospital Encounter [facility] [address] [place] [address] Karla Elder MD [address] [place] [id number] 07/14/2025 1:10 PM EST - 07/14/2025 3:35 PM EST Surgery [facility] [address] [place] [address] Karla Elder MD [address] [place] [address] TOTAL COLPECTOMY / COLPOCLESIS 08/25/2025 11:00 AM EST Office Visit [facility] [address] [phone] Erin Candelario, SHANIA [address] [place] [phone] Scheduled Orders Name Type Priority Associated Diagnoses Orde r Schedule SURGICAL/PROCEDURE CASE REQUEST - ERAS Procedures Routine Female genital prolapse, unspecified type Cystocele, midline Rectocele JACKIE (stress urinary incontinence, female) Abnormal defecation Ordered: 04/23/2025 Scheduled Procedures Name Priority Associated Diagnoses Date/Ti [...] PM EST documented as of this encounter Goals Goal Patient Goal Type Associated Problems Recent Progress Patient-Stated? Author Autogenera nirav Goal Care Plan Autogenerated Problem No Karina Nowak, Clerical Staff documented as of this encounter Visit Diagnoses Diagnosis Female genital prolapse, unspecified type- Primary Cystocele, midline Rectocele JACKIE (stress urinary incontinence, female) Female stress incontinence Abnormal defecation Female genital prolapse Unspecified genital prolapse Cystocele, midline Rectocele JACKIE (stress urinary incontinence, female) Female stress incontinence Abnormal defecation Female genital prolapse, unspecified type Cystocele, midline Rectocele JACKIE (stress urinary incontinence, female) Female stress incontinence Abnormal defecation documented in this encounter Additional Health Concerns Active Problems Noted Date Diagnosed Date Autogenerated Problem 04/23/2025 documented as of this encounter
--- OUTSIDE RECORDS SUMMARY | 2025-06-15 11:54 | XMS_ITS | Patient Health Record ---
[facility] [address] [facility] [address] [place] [id number] Care Team Providers Care Photograph Printer Name Role Phone Jose L Stephens Primary Care Provider [phone] Krysta Meza Unavailable [phone] Rajoseph Liseth Unavailable [phone] Allergies Allergen (clinical drug ingredient) Drug/Non Drug [...] date:04/09/2025 09:55:48 AM Interpretation:Abnormal Performing Lab: Notes/Report: CLIA: [id number] Marcial Byers MD, Machining Manager [facility] , [place] [address] Test performed by [employer], [employer] Specimen Source Urine - Void Culture, Urine [...] Tobramycin S Trimeth/Sulfa S S=SUSCEPTIBLE I=INTERMEDIATE R=RESISTANT Medications Medication SIG (Take, Route, Frequency, Duration) [...] ora lly once a day 08/11/2014 Active Immunizations Vaccine Route Administration Date Status Comme nts Shingrix Unknown 10/21/2019 Administered Tetanus Tdap-Adacel (over 7yrs) IM Intramuscular 08/20/2009 Administered Problems Problem Type SNOMED Code ICD Code Onset Dates Problem Status W/U Status Risk Notes Problem Fibrocystic disease of breast (91669081) Fibrocystic disease of breast (610.1) Active confirmed Problem Insomnia (332950992) INSOMNIA NOS (780.52) Active confirmed Problem Cardiac dysrhythmia (405696282) Cardiac dysrhythmia (I49.9) Active confirmed Problem Environmental allergy (792301677) Environmental allergies (Z91.048) Active confirmed Problem Rosacea (985400488) Rosacea (L71.9) Active confirmed Problem Age-related osteoporosis (253838358) Age-related osteoporosis without current pathological fracture (M81.0) Active confirmed Problem Thyroid nodule (427483771) Thyroid nodule (E04.1) Active confirmed Problem Acquired hammer toe of left foot (9634382512295402 ) Hammer toe of left foot (M20.42) Active confirmed Problem Osteoporosis (61188165) Osteoporosis (M81.0) Active confirmed Problem Age-related osteoporosis (302530103) Age related osteoporosis, unspecified pathological fracture presence (M81.0) Active confirmed Problem Herniation of rectum into vagina (074782995) Rectocele, female (N81.6) Active confirmed Vital Signs Heart Rate 86 /min 06/15/2025 Blood pressure diastolic 70 mm Hg 06/15/2025 Height 64.25 in 06/15/2025 Blood pressure systolic 116 mm Hg 06/15/2025 Weight 128.6 lbs 06/15/2025 BMI 21.9 kg/m2 06/15/2025 Encounters Encounter Location Date Provider Diagnosis [facility] [address] [place], [place] [phone] 04/06/2025 Krysta Meza UTI (lower urinary tract infection) N39.0 and BMI 21.0-21.9, adult Z68.21 [facility] [address] [place], [place] [phone] 06/15/2025 Jose L Stepehns Pre-op exam Z01.818 and Rectocele, female N81.6 [facility] [address] [place], [place] [id number] 04/09/2025 Liseth [place] [facility] [address] [place], [place] [phone] 04/13/2025 Jose L Stephens Encounter for screening for malignant neoplasm of breast Z12.31 and Encounter for screening for osteoporosis Z13.820 Assessments Encounter Date Diagnosis (ICD Code) Assessment Notes Treatment Notes Treatment Clinical Notes Section Notes 04/06/2025 UTI (lower urinary tract infection) (ICD-10 - N39.0) Drink drink the water. If the culture comes back positive we will send in an antibiotic. Follows up w/ Urology to schedule surgery 04/06/2025 BMI 21.0-21.9, adult (ICD-10 - Z68.21) 04/13/2025 Encounter for screening for osteoporosis (ICD-10 - Z13.820) 04/13/2025 Encounter for screening for malignant neoplasm of breast (ICD-10 - Z12.31) 06/15/2025 Pre-op exam (ICD-10 - Z01.818) 06/15/2025 Rectocele, female (ICD-10 - N81.6) Plan Of Treatment Pending Test Test Name Order Date Bone density 04/15/2025 EKG 06/15/2025 Mammogram 04/13/2025 H-CBC 06/15/2025 H-CMP 06/15/2025 Insurance Providers Payer Name Payer Address Payer Phone Subscriber Number Group Number Insured Name Patient Relationship to Insured Coverage Start Date Coverage End Date MEDICARE PART B [address] [address] [place] [address] [phone] [id number] SHA MELO Self - patient is the insured [address] [id number] SHA MELO Self - patient is the insured Medical (General) History Medical History History ICD Code Osteoporosis Rosacea Surgical History Surgery Date(Month/Year) Partial Hysterectomy 05/08/1997
--- OUTSIDE RECORDS SUMMARY | 2025-06-15 11:54 | XMS_ITS | Clinical Summary ---
Author Organization [facility] Address [address] [place] [phone] Phone Care Team Providers Care Branch Credit Counselor Name Role Phone Unavailable Primary Care Provider Unavailabl e Allergies No known active allergies Medications No known medications Active Problems Problem Noted Date Diagnosed Date Female genital prolapse 04/22/2025 Cystocele, midline 04/22/2025 Rectocele 04/22/2025 JACKIE (stress urinary incontinence, female) 2024 Abnormal defecation 04/22/2025 Encounters Date Type Department Care Team Description 04/22/2025 Telephone [facility] Urogynecology [address] [phone] Eli Dyson LPN Surgery Scheduling 04/20/2025 11:30 AM EDT Office Visit [facility] Urogynecology [address] [phone] Karla Elder MD Stress incontinence (Primary Dx); Cystocele, midline 04/14/2025 7:20 AM EDT Procedure visit [facility] Urogynecology [address] [phone] Erin Candelario APRN Female genital prolapse, unspecified type (Primary Dx); JACKIE (stress urinary incontinence, female); OAB (overactive bladder); Urinary frequency 03/19/2025 Results Follow-Up [facility] Urogynecology [address] [phone] Karla Elder MD URINE CULTURE (NO STAIN), URINALYSIS 03/16/2025 11:00 AM EDT Office Visit [facility] Urogynecology [address] [phone] Karla Elder MD Rectocele (Primary Dx); Abnormal defecation; Frequency of urination; Overactive bladder; Urine frequency; Hematuria, unspecified type from Last 3 Months Social History Tobacco Use Types Packs/Day Years [...] on file Sexual Orientation Not on file Obstetrics History Para Term AB IAB SAB Ectopic Multiple Livin g Live Births 4 4 Date Outcome GA Total Labor Labor/2nd/3rd Weight Sex Type Anes PTL Imani A1 A5 Name Clin Para Para Para Para Last Filed Vital Signs Vital Sign Reading Time Taken Comments Blood Pressure 118/68 03/16/2025 11:16 AM EDT Pulse 59 03/16/2025 11:16 AM EDT Temperature - - Respiratory Rate - - Oxygen Saturation 98% 03/16/2025 11:16 AM EDT Inhaled Oxygen Concentration - - Weight 57.9 kg (127 lb 9.6 oz) 03/16/2025 11:16 AM EDT Height - - Body Mass Index - - Plan of Treatment Upcoming Encounters Date Type Department Care Team (Latest Contact Info) Description 07/14/2025 1:10 PM EST Hospital Encounter [facility] [address] [place] [address] Karla Elder MD [address] [place] [address] 07/14/2025 1:10 PM EST - 07/14/2025 3:35 PM EST Surgery [facility] [address] [place] [address] Karla Elder MD [address] [place] [address] TOTAL COLPECTOMY / COLPOCLESIS 08/25/2025 11:00 AM EST Office Visit [facility] [address] [phone] Erin Candelario APRN [address] [place] [address] Scheduled Procedures Name Priority Associated Diagnoses Date/Ti [...] female) Abnormal defecation 07/14/2025 1:10 PM EST Health Maintenance Due Date Last Done Comments Wellness Exam Medicare 1958 Hepatitis C Screening 1972 DTaP/TDaP/Td (1 - Tdap) 1973 Breast Cancer Screening 1994 Cologuard 1999 Colon Cancer Screening 1999 Colonoscopy 1999 FIT 1999 Sigmoidoscopy 1999 Virtual Colonography 1999 Pneumococcal Vaccine 50+ (1 of 1 - PCV) 2004 Bone Density Screening 2019 COVID-19 Vaccine (1 - 2023-2 5 season) 2025 Influenza Vaccine (#1) 2025 Zoster Completed 10/21/2019, 08/12/2019 Hepatitis B Vaccine Aged Out No longe r eligible based on patient's age to complete this topic Meningococcal B Vaccine Aged Out No l onger eligible based on patient's age to complete this topic Goals Goal Patient Goal Type Associated Problems Recent Progress Patient-Stated? Author Autogenera nirav Goal Care Plan Autogenerated Problem No Karina Nowak, Clerical Staff Procedures Procedure Name Priority Date/Time Associated Diagnosis Comments SEP URINALYSIS POC Routine 04/14/2025 7: 37 AM EDT Urinary frequency URINALYSIS Routine 03/16/2025 11:36 AM EDT Hematuria, unspecified type URINE CULTURE (NO STAIN) Routine 03/16/2025 11:36 AM EDT Urine frequency from Last 3 Months Results * (ABNORMAL) SEP URINALYSIS POC (04/14/2025 7:37 AM EDT) UA Color POC Yellow Color 04/14/2025 7:40 AM EDT [facility] Appear POC Clear Clear 04/14/2025 7:40 AM EDT [facility] Gluc POC Negative Negative mg/dL 04/14/2025 7:40 AM EDT [facility] Bili POC Negative Negative 04/14/2025 7:40 AM EDT [facility] Ketones POC Negative Negative mg/dL 04/14/2025 7:40 AM EDT [facility] SG POC 1.015 1.001 - 1.035 no units 04/14/2025 7:40 AM EDT [facility] Blood POC Trace-Intac t(A) Negative 04/14/2025 7:40 AM EDT [facility] pH POC 6.5 5.0 - 8.0 pH 04/14/2025 7:40 AM EDT [facility] Protein POC Negative Negative mg/dL 04/14/2025 7:40 AM EDT [facility]A Urobilinogen POC 0.2 0.2, 1.0 04/14/2025 7:40 AM EDT [facility]A Nitrite POC Negative Negative 04/14/2025 7:40 AM EDT [facility]A Leuk Est POC Negative Negative 7:40 AM EDT [facility] Urine STRUCTURE OF URINARY TRACT PROPER / Unknown 04/14/2025 7:37 AM EDT 04/14/2025 7:40 AM EDT Erin Candelario MERCHANDISING ASSISTANT POINT OF CARE TEST ORDER TRENA Final Result [facility] UROGYNECOLOGY [address] [place] [address] * URINALYSIS (03/16/2025 11:36 AM EDT) UA Color Colorless 03/17/2025 8:35 AM EDT [facility] UA Appear Clear Clear 03/17/2025 8:35 AM EDT [facility] UA Glucose Negative Negative mg/dL 03/17/2025 8:35 AM EDT [facility] UA Ketones Negative Negative mg/dL 03/17/2025 8:35 AM EDT [facility] UA Blood Negative Negative 03/17/2025 8:35 AM EDT [facility] UA pH 7.0 5.0 - 8.0 pH 03/17/2025 8:35 AM EDT [facility] UA Protein Negative Negative mg/dL 03/17/2025 8:35 AM EDT [facility] UA Urobilinogen Normal <=1 mg/dL 8:35 AM EDT [facility] UA Bili Negative Negative 03/17/2025 8:35 AM EDT [facility] UA Nitrite Negative Negative 03/17/2025 8:35 AM EDT [facility] UA Leuk Est Negative Negative 03/17/2025 8:35 AM EDT [facility] UA Spec Grav 1.007 1.001 - 1.035 no units 03/17/2025 8:35 AM EDT [facility] Comment:Reference range marina d for random specimens only. Urine URINARY BLADDER STRUCTURE / Unknown 03/16/2025 11:36 AM EDT 03/16/2025 11:36 AM EDT us Karla Elder MD URINE ORDERABLES Final Re sult [facility] [employer] [facility] [address] [facility] , [place] [place] [address] * (ABNORMAL) URINE CULTURE (NO STAIN) (03/16/2025 11:36 AM EDT) Culture Positive Growth(A) 03/19/2025 1:15 PM EDT [employer] [facility] Culture >100,000 CFU/mL Klebsiella species SUSCEPTIBI LITY RESULT 03/19/2025 1:15 PM EDT [employer] Urine URINARY BLADDER STRUCTURE / Unknown 03/16/2025 11:36 AM EDT 03/16/2025 11:36 AM EDT Narrative Organism Antibiotic Method Susceptibility Klebsiella species Amikacin SUSCEPTIBILITY RESULT Klebsiella species Amoxicillin/Clavulan at e SUSCEPTIBILITY RESULT <=8/4 ug/mL: Susceptible Klebsiella species Ampicillin SUSCEPTIBILITY RESULT Klebsiella species Ampicillin/Sulbactam SUSCEPTIBILITY RESULT <=4/2 ug/mL: Susceptible Klebsiella species Aztreonam SUSCEPTIBILITY RESULT <=4 ug/mL: Susceptible Klebsiella species Cefazolin SUSCEPTIBILITY RESULT <=2 ug/mL: Susceptible Klebsiella species Cefepime SUSCEPTIBILITY RESULT Klebsiella species Cefotaxime SUSCEPTIBILITY RESULT Klebsiella species Cefoxitin SUSCEPTIBILITY RESULT <=8 ug/mL: Susceptible Klebsiella species Ceftazidime SUSCEPTIBILITY RESULT Klebsiella species Ceftazidime/Avibactam SUSCEPTIBILIT Y RESULT Klebsiella species Ceftolozane/Tazobactam SUSCEPTIBILI TY RESULT Klebsiella species Ceftriaxone SUSCEPTIBILITY RESULT Klebsiella species Cefuroxime SUSCEPTIBILITY RESULT Klebsiella species Ciprofloxacin SUSCEPTIBILITY RESULT <=0.25 ug/mL: Susceptible Klebsiella species Ertapenem SUSCEPTIBILITY RESULT <=0.5 ug/mL: Susceptible Klebsiella species Gentamicin SUSCEPTIBILITY RESULT <=2 ug/mL: Susceptible Klebsiella species Imipenem SUSCEPTIBILITY RESULT <=1 ug/mL: Susceptible Klebsiella species Levofloxacin SUSCEPTIBILITY RESULT <=0.5 ug/mL: Susceptible Klebsiella species Meropenem SUSCEPTIBILITY RESULT <=1 ug/mL: Susceptible Klebsiella species Meropenem/Vaborbactam SUSCEPTIBILIT Y RESULT Klebsiella species Minocycline SUSCEPTIBILITY RESULT Klebsiella species Moxifloxacin SUSCEPTIBILITY RESULT Klebsiella species Nitrofurantoin SUSCEPTIBILITY RESUL T <=32 ug/mL: Susceptible Klebsiella species Piperacillin/Tazobac ta m SUSCEPTIBILITY RESULT <=8 ug/mL: Susceptible Klebsiella species Tetracycline SUSCEPTIBILITY RESULT <=4 ug/mL: Susceptible Klebsiella species Tigecycline SUSCEPTIBILITY RESULT Klebsiella species Tobramycin SUSCEPTIBILITY RESULT <=2 ug/mL: Susceptible Klebsiella species Trimethoprim/Sulfame th oxazole SUSCEPTIBILITY RESULT <=0.5/9.5 ug/mL: Susceptible us Karla Elder MD MICROBIOLOGY - GENERAL OR NASIR Final Result [facility] [employer] [address], [place] [address] from Last 3 Months Additional Health Concerns Active Problems Noted Date Diagnosed Date Autogenerated Problem 04/23/2025 Insurance [place]ICARE [place] PART A AND B [place] PART A [place] B Member Subscriber Plan / Payer (Ef fective 2019-Present) Name:Renuka Guerra Member ID:[id number] Relation to Subscriber:Self Name:Renuka Guerra Subscriber ID:[id number] Payer ID:Not on file Group ID:Not on file Type:Not on file Address: [address] [employer]
--- NOTE | 2025-06-15 12:08 | ECG_ITS ---
APPROVED REPORT Exam: Resting ECG HR:55 bpm ECG Measurements Heart Rate 55 AXES [place] 145 P 68 QRSd 111 QRS -56 QT 402 T 72 QTc 392 Conclusion ELECTRONIC VENTRICULAR PACEMAKER ABNORMAL RHYTHM ECG UNCONFIRMED REPORT Electronically signed by : Dustin Reese MD 06/16/2025 15:55:15
[2025-06-15 13:19] LABS: Hematocrit 44.1 % (37.0-47.0); Hemoglobin 14.6 g/dL (12.2-16.2); Immature Granulocytes % 0.4 %; Mean Corpuscular HGB Conc 33.1 g/dL (31.8-35.4); Mean Corpuscular Hemoglobin 30.9 pg (27.0-31.2); Mean Corpuscular Volume 93.2 fl (81-99); Nucleated Red Blood Cells % 0 %; Platelet Count 198 K/mm3 (142-424); Red Blood Count 4.73 M/mm3 (4.20-5.40); Red Cell Distribution Width-SD 44.1 fL; White Blood Count 5.6 K/mm3 (4.8-10.8)
[2025-06-15 13:50] LABS: Alanine Aminotransferase 24 U/L (12-78); Albumin Level 4.1 g/dl (3.5-5.0); Albumin/Globulin Ratio 1.5 (1.1-1.8); Alkaline Phosphatase 109 U/L (38-126); Anion Gap 14.2 mEq/L (5-15); Aspartate Amino Transferase 43 U/L (14-36); Bilirubin,Total 0.7 mg/dl (0.2-1.3); Blood Urea Nitrogen 20 mg/dl (7-17); Calcium 9.5 mg/dl (8.4-10.2); Carbon Dioxide 29 mmol/L (22.0-30.0); Chloride 98 mmol/L (98-107); Creatinine,Serum 0.70 mg/dl (0.52-1.04); Estimated Glomerular Filt Rate 82 ml/min (>60); GFR (African American) 100 ML/MIN (>60); Globulin 2.8 g/dL (1.3-3.2); Glucose 100 mg/dl (74-100); Potassium 4.2 mmoL/L (3.5-5.1); Sodium 137 mmol/L (136-145); Total Protein,Serum 6.9 g/dl (6.3-8.2)
== END 2025-06-15 23:59 | disposition home or self-care (01) ==
LOC: RT 11:52
PROVIDERS: PCP Family Medicine; Visit Provider Family Medicine
DX: Z01.810 Encounter for preprocedural cardiovascular examination (principal); Z01.812 Encounter for preprocedural laboratory examination; Z01.818 Encounter for other preprocedural examination; I49.8 Other specified cardiac arrhythmias; Z95.0 Presence of cardiac pacemaker
CPT/HCPCS: 36415; 80053; 85025; 93005

== ENCOUNTER 2025-06-19 09:54 | Outpatient (CLI) | payer MEDICARE, OTHER, SELFPAY ==
--- OUTSIDE RECORDS SUMMARY | 2024-01-14 05:15 | XMS_ITS ---
Author Organization [facility] Address [address] [facility] [address] [place] [id number] Care Team Providers Care Software Consultant Name Role Phone Jose L Stephens Primary Care Provider Allergies No Known Allergies Results Component Value Reference Range Notes Urinalysis - Inhouse Reviewed date:01/14/2024 10:40:15 AM Interpretation: Performing Lab: Notes/Report: Color/Clarity yellow Leuk 3+ Nitrite neg Urobili 3.2 Protein neg pH 6.5 Blood 1+ Sp. Gr. 1.010 Ketone neg Bili neg Gluc neg TEN-UTI panel Reviewed date:01/17/2024 08:50:55 AM Interpretation:Abnormal Performing Lab: Notes/Report: Abnormal REASON FOR VISIT Possible UTI Medications Medication SIG (Take, Route, Frequency, Duration) Notes Start Date End Date Status Vitamin D3 25 MCG (1000 UT) 1 tab(s) orally once a day 08/11/2014 A ctive Macrobid 100 MG 1 capsule with food Orally every 12 hrs; Duration: 5 day(s) 01/14/2024 Active valACYclovir HCl 1 GM 2 tablet Orally Tw o times a day 08/09/2023 Active Prolia 60 MG/ML as directed subcutan eously every 6 months 03/24/2020 Active Finacea 15 % 1 sherwin applied topica lly 2 times a day 04/23/2012 Active Os-Jeremiah Calcium + D3 500-5 MG-MCG 1 tab(s) orally bid 12/31/2008 Active Multivitamin - 1 tab(s) orally once a day; Duration: 30 day(s) Active Vitamin K2 WITH CALCIUM 100 MCG 1 TAB(S) ORALLY ONCE A DAY A ctive Vitamin C 500 MG 1 tab(s) orally once a day; Duration: 30 day(s) Active Vital Signs Weight 126 lbs 01/14/2024 Blood pressure systolic 120 mm Hg 01/14/20 24 Blood pressure diastolic 72 mm Hg 024 Heart Rate 70 /min 01/14/2024 Height 64.25 in 01/14/2024 BMI 21.46 kg/m2 01/14/2024 Encounters Encounter Location Date Provider Diagnosis [facility] [address] [place] [id number] 01/14/2024 Jose L Stephens Acute UTI N39.0 Assessments Encounter Date Diagnosis (ICD Code) Assessment Notes Treatment Notes Treatment Clinical Notes Section Notes 01/14/2024 Acute UTI (ICD-10 - N39.0) Plan Of Treatment Medication Medication Name Sig Start Date Stop Date Notes Macrobid 100 MG 1 capsule with food Orally every 12 hrs; Duration: 5 day(s) 01/14/2024 Next Appt Details Follow Up: prn, Reason: Progress Notes * SHA MELO LDOB:1955 (70 yo F)Acc No.[id number]:01/14/2024 Progress Notes Patient: Gerald JACQUES SHA Montez Provider: Jacob Stephens M.D. :1955 A ge:68 Y S ex:Female Date:01/14/2024 Address:[address] [place] [address] [place], [place], [id number] Subjective: * Chief Complaints: * 1 . Possible UTI. * HPI: U rology: 68 year old female presents with c/o frequent urination P t complains of urine frequency with small amount off and on for 6 days. States there is no buring but she does have a weird sensation . Pt is concerned of possible bladder prolapse. * ROS: C ARDIOLOGY: no D izziness. n o C hest pain. D ERMATOLOGY: no R jose. n o H ross. G ASTROENTEROLOGY: no N ausea. n o V omiting. * Medical History: O steoporosis, Rosacea. * Surgical History: P artial Hysterectomy 05/08/1997. * Hospitalization/Major Diagno stic Procedure: D enies Past Hospitalization. * Family History: F ather: 83 yrs, staph infection; pacemaker. M other: 74 yrs. 1 brother(s) . 2 son(s) , 2 daughter(s) . . * Social History: C URRENT TOBACCO USE S moking Status: Patient does NOT smoke. C affeine: yes, frequency:tea. Home smoke detector use: yes. Marital Status: . Past smoking status: no, Smoking status: Does not smoke. Alcohol: Yes, Type: , Frequency: ,Years: , Determination: occasionally. Sexually active: yes. * Medications: T aking Vitamin D3 25 MCG (1000 UT) Tablet 1 tab(s) orally once a day , Taking Multivitamin - Tablet 1 tab(s) orally once a day , Taking Os-Jeremiah Calcium + D3 500-5 MG-MCG Tablet 1 tab(s) orally bid , Taking Vitamin C 500 MG Tablet 1 tab(s) orally once a day , Taking Vitamin K2 WITH CALCIUM 100 MCG TABLET 1 TAB(S) ORALLY ONCE A DAY , Taking Finacea 15 % Gel 1 sherwin applied topically 2 times a day , Taking Prolia 60 MG/ML Solution Prefilled Syringe as directed subcutaneously every 6 months , Taking valACYclovir HCl 1 GM Tablet 2 tablet Orally Two times a day , Medication List reviewed and reconciled with the patient * Allergies: N .K.D.A. Objective: * Vitals: W t:126, Temp:97.8, BP:120/72, HR:70, Nurse:rebeca, Ht: 64.25, BMI:21.46. * Examination: G eneral Examination: General Appearance: N AD. Assessment: * Assessment: 1. A cute UTI - N39.0 (Primary) Plan: * Treatment: Value Reference Range C olor/Clarity yellow * L euk 3+ * N itrite neg * U robili 3.2 * P rotein neg * p H 6.5 * B lood 1+ * S p. Gr. 1.010 * K etone neg * B martha neg * G sonam neg * Cristy Cage 01/14/2024 9 :30:21 AM > , Provider reviewed results while patient in office. ?LAB: TEN-UTI panel (Collection Date & Time - 01/15/2024)?Abnormal* Izzy Hernandez 01/17/2024 8:49: 18 AM > patient started on Izzy Brooke 01/17/2024 8:50:47 AM > , See phone encounter * Procedure Codes: 8 1002 Urinalysis, no micro, [address] SPECIMEN HANDLING * Follow Up: p rn * Images: Billing Information: * Visit Code: 18159 Office Visit, Est Pt., Level 3. * Procedure Codes: 43348 Urinalysis, no micro. 27650 SPECIMEN HANDLING. * Electronic signature of Katya Stephens MD on 06/19/2025 at 10:11 AM EDT Sign off status: Pending * Provider: Jacob Stephens M.D. Date: 0 01/14/2024 Generated for Ty mott/Yue/Emmieitting on: 1 10:11 AM EDT History and Physical Notes * HPI (History of Present Illness) Category Sub-Category Detail Notes Category Not es Urology frequent urination Pt complains of urine frequency with small amount off and on for 6 days. States there is no buring but she does have a weird sensation . Pt is concerned of possible bladder prolapse Examination Category Sub-Category Detail Notes Category Not es General Examination General Appearance: NAD
--- OUTSIDE RECORDS SUMMARY | 2025-04-06 06:15 | XMS_ITS ---
Author Organization [facility] Address [address] [facility] 36 [facility] [address] [place] [id number] Care Team Providers Care Shuttlecock Feather Trimmer Name Role Phone Jose L Stephens Primary Care Provider Krysta Meza Unavailable [phone] Allergies Allergen (clinical drug ingredient) Drug/Non Drug [...] Interpretation:Abnormal Performing Lab: Notes/Report: Test performed by [facility] [employer], [facility] [address] [place] [address] , [place] [address] Marcial Byers MD, Sap Administrator CLIA: [id number] Specimen Source Urine - Void Culture, Urine [...] Encounter Location Date Provider Diagnosis [facility] [address] [place] [id number] 04/06/2025 Krysta Meza UTI (lower urinary tract [...] * SHA MELO LDOB:1955 (70 yo F)Acc No.[id number]:04/06/2025 Progress Notes Patient: SHA COOK Provider: SONIA Jasso :1955 A ge:69 Y S ex:Female Date:04/06/2025 Address:[address] [place] [address], [facility], [id number] Pcp:Jose L Stephens Subjective: * Chief Complaints: [...] infection) - N39.0 (Primary) 2 . B IA 21.0-21.9, adult - Z68.21 Plan: * Treatment: [...] neg * G sonam neg * Char Jones 04/06/2025 11:18 :07 AM EDT > Provider reviewed results while patient in office.Krysta Meza 04/06/2025 02:46:14 PM EDT > Notes: Drink drink the water. If the culture comes back positive we will send in an antibiotic. Follows up w/ Urology to schedule surgery?? * Procedure Codes: G 2211 Complex e/[place], [address] Urinalysis, no micro, 1036F TOBACCO NON- USER, G8420 BMI<30 AND >=22 CALC & DOCU, G8783 BP SCR PRFRM RCMDD DEFIND SCR INTVL, G8752 MOST RECENT SYSTOLIC BP < 140MM HG, G8754 MOST RECENT DIASTOLIC BP < 90MM HG * Follow Up: p rn * Images: Billing Information: * Visit Code: 35994 Office Visit, Est Pt., Level 3. * Procedure Codes: G2211 Complex e/[place]. [address] Urinalysis, no micro. 1036F TOBACCO NON-USER. G8420 BMI<30 AND >=22 CALC & DOCU. G8783 BP SCR PRFRM RCMDD DEFIND SCR INTVL. G8752 MOST RECENT SYSTOLIC BP < 140MM HG. G8754 MOST RECENT DIASTOLIC BP < 90MM HG. * Electronic signature of Lily Meza APRN on 06/19/2025 at 10:11 AM EDT Sign off status: Pending * Provider: SONIA Jasso Date: 0 04/06/2025 Generated for Ty mott/Yue/Emmieitting on: 1 10:11 [...]
--- OUTSIDE RECORDS SUMMARY | 2025-06-15 06:15 | XMS_ITS ---
Author Organization [facility] Address [address] [place] [id number] Care Team Providers Care Lard Mixer Name Role Phone Jose L Stephens Primary Care Provider [phone] Allergies Allergen (clinical drug ingredient) Drug/Non Drug Allergy documented on EMR Reaction Allergy Type Onset Date Status Substance with sulfonamide structure and antibacterial mechanism of action (substance) Sulfa Antibiotics Unknown Drug Allergy Active Results Component Value Reference Range Notes H-CBC Reviewed date:06/16/2025 09:07:13 AM Interpretation:MO% 10.7 Performing Lab: Notes/Report: WBC 5.6 4.8-10.8 K/mm3 RBC 4.73 4.20-5.40 M/mm3 HGB 14.6 12.2-16.2 g/dL HCT 44.1 37.0-47.0 % MCV 93.2 81-99 fl MCH 30.9 27.0-31.2 pg MCHC 33.1 31.8-35.4 g/dL RDW-SD 44.1 RDW 12.8 11.5-17.5 % PLT 198 142-424 K/mm3 MPV 9.8 7.4-10.4 fl NE% 56.6 37.0-80.0 % LY% 28.4 10-50 % MO% 10.7 1.7-9.3 % EO% 3.2 0.1-12.0 % BA% 0.7 0.1-2.0 % NRBC% 0 IG% 0.4 NE# 3.2 1.8-7.8 K/mm3 LY# 1.6 0.7-4.5 K/mm3 MO# 0.6 0.1-1.0 K/mm3 EO# 0.2 0.0-0.4 Kmm3 BA# 0.0 0-0.2 K/mm3 NRBC# 0 IG# 0.02 H-CMP Reviewed date:06/16/2025 09:07:13 AM Interpretation:BUN 20, AST 43 Performing Lab: Notes/Report: NA 137 136-145 mmol/L K 4.2 3.5-5.1 mmoL/L CL 98 98-107 mmol/L CO2 29 22.0-30.0 mmol/L GAP 14.2 5-15 mEq/L BUN 20 7-17 mg/dl CREATT 0.70 0.52-1.04 mg/dl GFRAA 100 >60 ML/MIN EGFR 82 >60 ml/min GLU 100 74-100 mg/dl CA 9.5 8.4-10.2 mg/dl BILIT 0.7 0.2-1.3 mg/dl AST 43 14-36 U/L ALT 24 12-78 U/L TP 6.9 6.3-8.2 g/dl ALB 4.1 3.5-5.0 g/dl GLOB 2.8 1.3-3.2 g/dL AGRATIO 1.5 1.1-1.8 ALP 109 38-126 U/L EKG Reviewed date:06/18/2025 09:36:57 AM Interpretation: Performing Lab: Notes/Report: EKG Reviewed date:06/18/2025 09:36:57 AM Interpretation: Performing Lab: Notes/Report: REASON FOR VISIT preop physical Medications Medication SIG (Take, Route, Frequency, Duration) Notes Start Date End Date Status Multivitamin - 1 tab(s) orally once a day; Duration: 30 day(s) Active Vitamin C 500 MG 1 tab(s) orally once a day; Duration: 30 day(s) Active Vitamin K2 WITH CALCIUM 100 MCG 1 TAB(S) ORALLY ONCE A DAY Active Finacea 15 % 1 sherwin applied topica lly 2 times a day 04/23/2012 Active Vitamin D3 25 MCG (1000 UT) 1 tab(s) ora lly once a day 08/11/2014 Active Problems Problem Type SNOMED Code ICD Code Onset Dates Problem Status W/U Status Risk Notes Problem Herniation of rectum into vagina (445463074) Rectocele, female (N81.6) Active confirmed Vital Signs Weight 128.6 lbs 06/15/2025 Blood pressure systolic 116 mm Hg 06/15/20 25 Blood pressure diastolic 70 mm Hg 025 Heart Rate 86 /min 06/15/2025 Height 64.25 in 06/15/2025 BMI 21.9 kg/m2 06/15/2025 Encounters Encounter Location Date Provider Diagnosis [facility] [address] [place] [id number] 06/15/2025 Jose L Stephens Pre-op exam Z01.818 and Rectocele, female N81.6 Assessments Encounter Date Diagnosis (ICD Code) Assessment Notes Treatment Notes Treatment Clinical Notes Section Notes 06/15/2025 Pre-op exam (ICD-10 - Z01.818) 06/15/2025 Rectocele, female (ICD-10 - N81.6) Plan Of Treatment Next Appt Details Follow Up: via phone to repo rt test results, Reason: Progress Notes * SHA MELO LDOB:1955 (70 yo F)Acc No.[id number]:06/15/2025 Physical Patient: Gerald SHA JACQUES Provider: Jacob Stephens M.D. :1955 A ge:70 Y S ex:Female Date:06/15/2025 Address:[address] [place] [address] [place], [place], [id number] Subjective: * Chief Complaints: * 1 . Preop physical. * HPI: A dult Pre-Op physical: 70 year old female presents with c/o Procedure: R ectocele.? c/o Date of Procedure: 09/09/2024. c/o Name of Surgeon: Marquita Kelsey Uro/Industrial Relations Commissioner, [facility]. * Medical History: O steoporosis, Rosacea. * Surgical History: P artial Hysterectomy 05/08/1997. * Hospitalization/Major Diagno stic Procedure: D enies Past Hospitalization. * Family History: F ather: 83 yrs, staph infection; pacemaker. M other: 74 yrs. 1 brother(s) . 2 son(s) , 2 daughter(s) . . * Social History: C URRENT TOBACCO USE: No S moking Status: Patient does NOT smoke. [...] , Taking Finacea 15 % Gel 1 hserwin applied topically 2 times a day , Discontinued Cefdinir 300 MG Capsule 1 cap(s) Orally Two times a day , Medication List reviewed and reconciled with the patient * Allergies: S ulfa Antibiotics. Objective: * Vitals: W t: 128.6, Temp: 97.8, BP: 116/70, HR: 86, Nurse: rebeca, Ht: 64.25, BMI:21.9. * Examination: G eneral Examination: General Appearance: N AD. H EENT: u nremarkable.?Oral cavity: n o lesions, mucosa moist and WNL, no erythema. N arminda: s upple, no lymphadenopathy. C hest: n ormal shape and expansion. H eart: R SR. L ungs: c lear to auscultation. N eurologic Exam: I ntact, gait normal. S kin: n ormal, no rash.?Peripheral pulses: n ormal (2+) bilaterally. E xtremities: n o leg edema. ? Assessment: * Assessment: 1. P re-op exam - Z01.818 (Primary) 2 . R ectocele, female - N81.6 ? Plan: * Treatment: Value Reference Range W BC 5.6 4.8-10.8 - K/mm3 * R BC 4.73 4.20-5.40 - M/mm3 * H GB 14.6 12.2-16.2 - g/dL * H CT 44.1 37.0-47.0 - % * M CV 93.2 81-99 - fl * M CH 30.9 27.0-31.2 - pg * M CHC 33.1 31.8-35.4 - g/dL * R DW 12.8 11.5-17.5 - % * P LT 198 142-424 - K/mm3 * M PV 9.8 7.4-10.4 - fl * N E% 56.6 37.0-80.0 - % * L Y% 28.4 10-50 - % * M O% 10.7 H 1.7-9.3 - % * E O% 3.2 0.1-12.0 - % * B A% 0.7 0.1-2.0 - % * N E# 3.2 1.8-7.8 - K/mm3 * L Y# 1.6 0.7-4.5 - K/mm3 * M O# 0.6 0.1-1.0 - K/mm3 * E O# 0.2 0.0-0.4 - Kmm3 * B A# 0.0 0-0.2 - K/mm3 * R DW-SD 44.1 - fL * N RBC% 0 - % * N RBC# 0 - 10 3/uL * I G% 0.4 - % * I G# 0.02 - 10 3uL * Marybel Willett 06/16/2025 09 :06:39 AM EDT > See phone encounter ?LAB: H-CMP (Collection Date & Time - 06/15/2025 12:11 PM)?BUN 20, AST 43* Value Reference Range N A 137 136-145 - mmol/L * K 4.2 3.5-5.1 - mmoL/L * C L 98 98-107 - mmol/L * C O2 29 22.0-30.0 - mmol/L * G AP 14.2 5-15 - mEq/L * B UN 20 H 7-17 - mg/dl * C REATT 0.70 0.52-1.04 - mg/dl * G FRAA 100 >60 - ML/MIN * E GFR 82 >60 - ml/min * G LISA 100 74-100 - mg/dl * C A 9.5 8.4-10.2 - mg/dl * B ILIT 0.7 0.2-1.3 - mg/dl * A ST 43 H 14-36 - U/L * A LT 24 12-78 - U/L * T P 6.9 6.3-8.2 - g/dl * A LB 4.1 3.5-5.0 - g/dl * G LOB 2.8 1.3-3.2 - g/dL * A GRATIO 1.5 1.1-1.8 - * A LP 109 38-126 - U/L * Marybel Willett 06/16/2025 09 :06:39 AM EDT > See phone encounter ?Imaging: EKG (Performed Date - 06/15/2025)* Marybel Willett 06/18/2025 09 :36:29 AM EDT > incorrect and being repeated. pt does not have pacemaker. * Procedure Codes: G 2211 Complex e/m visit add on * Follow Up: v ia phone to report test results * Images: Billing Information: * Visit Code: 53452 Office Visit, Est Pt., Level 4. * Procedure Codes: G2211 Complex e/m visit add on. * Electronic signature of Katya Stephens MD on 06/19/2025 at 10:11 AM EDT Sign off status: Pending * Provider: Jacob Stephens M.D. Date: Generated for Ty mott/Yue/Teresa on: 10:11 AM EDT History and Physical Notes * HPI (History of Present Illness) Category Sub-Category Detail Notes Category Not es Adult Pre-Op physical Procedure: Rectocele Date of Procedure: 07/10/2025 Name of Surgeon: Dr. Karla Kelsey Uro /Industrial Relations Commissioner, [facility] Examination Category Sub-Category Detail Notes Category Not es General Examination HEENT: unremarkable Heart: RSR Lungs: clear to auscultatio n Extremities: no leg edema General Appearance: NAD Skin: normal, no rash Neurologic Exam: Intact, gait normal Neck: supple, no lymphaden opathy Oral cavity: no lesions, mucosa m oist and WNL, no erythema Peripheral pulses: normal (2+) bilatera lly Chest: normal shape and exp ansion
--- OUTSIDE RECORDS SUMMARY | 2025-06-19 10:09 | XMS_ITS | Patient Health Record ---
Author Organization [facility] Address [address] [place] [id number] Care Team Providers Care Director Software Quality Assurance Name Role Phone Jose L Stephens Primary Care Provider Krysta Meza Unavailable [phone] Liseth [place] Unavailable [phone] Allergies Allergen (clinical drug ingredient) Drug/Non Drug Allergy documented on EMR Reaction Allergy Type Onset Date Status Substance with sulfonamide structure and antibacterial mechanism of action (substance) Sulfa Antibiotics Unknown Drug Allergy Active Results Component Value Reference Range Notes P-Culture, Urine Reviewed date:04/09/2025 09:55:48 AM Interpretation:Abnormal Performing Lab: Notes/Report: Test performed by [facility], [address] , [place] [address] Marcial Byers MD, Pump Operator CLIA: [id number] Specimen Source Urine - Void Culture, Urine See Below See Microbiol ogy Report Klebsiella pneumoniae >100,000 CFU/ml Klebsiella pneumoniae Sensitivity Panel See Below ____ Organism K.pneum Antibiotic INTERP ____ Amikacin S Ampicillin R Aztreonam S Cefepime S Cefoxitin S Ceftazidime S Ceftriaxone S Cefuroxime S Ciprofloxacin S Ertapenem S Gentamicin S Imipenem S Levofloxacin S Meropenem S Nitrofurantoin R Piperacillin/Tazo S Tetracycline S Tobramycin S Trimeth/Sulfa S ___ S=SUSCEPTIBLE I=INTERMEDIATE R=RESISTANT Urinalysis - Inhouse Reviewed date:04/06/2025 02:46:16 PM Interpretation: Performing Lab: Notes/Report: Color/Clarity clear yellow Leuk trace Nitrite neg Urobili 3.2 Protein neg pH 6.5 Blood trace- intact Sp. Gr. 1.010 Ketone neg Bili neg Gluc neg H-CBC Reviewed date:06/16/2025 09:07:13 AM Interpretation:MO% 10.7 [...] date:06/18/2025 09:36:57 AM Interpretation: Performing Lab: Notes/Report: Medications Medication SIG (Take, Route, Frequency, Duration) [...] Vaccine Route Administration Date Status Comme nts Tetanus Tdap-Adacel (over 7yrs) IM Intramuscular 08/20/2009 Administered Shingrix Unknown 10/21/2019 Administered Problems Problem Type SNOMED Code ICD Code Onset Dates Problem Status W/U Status Risk Notes Problem Fibrocystic disease of breast (58809579) Fibrocystic disease of breast (610.1) Active confirmed Problem Insomnia (334661883) INSOMNIA NOS (780.52) Active confirmed Problem Cardiac dysrhythmia (965353081) Cardiac dysrhythmia (I49.9) Active confirmed Problem Environmental allergy (666271937) Environmental allergies (Z91.048) Active confirmed Problem Rosacea (636020120) Rosacea (L71.9) Active confirmed Problem Age-related osteoporosis (579402637) Age-related osteoporosis without current pathological fracture (M81.0) Active confirmed Problem Thyroid nodule (833411295) Thyroid nodule (E04.1) Active confirmed Problem Acquired hammer toe of left foot (1716576244271155 ) Hammer toe of left foot (M20.42) Active confirmed Problem Osteoporosis (87811552) Osteoporosis (M81.0) Active confirmed Problem Age-related osteoporosis (861858329) Age related osteoporosis, unspecified pathological fracture presence (M81.0) Active confirmed Problem Herniation of rectum into vagina (163881415) Rectocele, female (N81.6) Active confirmed Vital Signs Heart Rate 86 /min 06/15/2025 Blood pressure diastolic 70 mm Hg 06/15/2025 Height 64.25 in 06/15/2025 Blood pressure systolic 116 mm Hg 06/15/2025 Weight 128.6 lbs 06/15/2025 BMI 21.9 kg/m2 06/15/2025 Encounters Encounter Location Date Provider Diagnosis [facility] [address] [facility] [address] [place], [place] [id number] 04/06/2025 Krysta Meza UTI (lower urinary tract infection) N39.0 and BMI 21.0-21.9, adult Z68.21 [facility] [address] [place], [place] [id number] 06/15/2025 Jose L Hext Pre-op exam Z01.818 and Rectocele, female N81.6 [facility] [address] [place], [place] [id number] 04/09/2025 Liseth [place] [facility] [address] [facility] [address] [place], [place] [id number] 04/13/2025 Jose L Stephens Encounter for screening for malignant neoplasm of breast Z12.31 and Encounter for screening for osteoporosis Z13.820 [facility] [address] [facility] [address] [place] [id number] 06/16/2025 Jose L Stephens Assessments Encounter Date Diagnosis (ICD Code) Assessment Notes Treatment Notes Treatment Clinical Notes Section Notes 04/06/2025 UTI (lower urinary tract infection) (ICD-10 - N39.0) Drink drink the water. If the culture comes back positive we will send in an antibiotic. Follows up w/ Urology to schedule surgery 04/06/2025 BMI 21.0-21.9, adult (ICD-10 - Z68.21) 04/13/2025 Encounter for screening for malignant neoplasm of breast (ICD-10 - Z12.31) 04/13/2025 Encounter for screening for osteoporosis (ICD-10 - Z13.820) 06/15/2025 Pre-op exam (ICD-10 - Z01.818) 06/15/2025 Rectocele, female (ICD-10 - N81.6) Plan Of Treatment Pending Test Test Name Order Date Bone density 04/15/2025 EKG 06/18/2025 Mammogram 04/13/2025 Insurance Providers Payer Name Payer Address Payer Phone Subscriber Number Group Number Insured Name Patient Relationship to Insured Coverage Start Date Coverage End Date MEDICARE PART B [address] [address] [place] [id number] SHA MELO Self - patient is the insured [address] [address] [phone] [id number] SHA MELO Self - patient is the insured Medical (General) History Medical History History ICD Code Osteoporosis Rosacea Surgical History Surgery Date(Month/Year) Partial Hysterectomy 05/08/1997
--- OUTSIDE RECORDS SUMMARY | 2025-06-19 10:11 | XMS_ITS | Encounter Summary ---
Author Organization [place] [address] Care Team Providers Care Packing Room Supervisor Name Role Phone Unavailable Primary Care Provider Unavailabl e Reason for Visit * Reason Onset Date Comments Surgery Scheduling 04/22/2025 Encounter Details Date Type Department Care Team (Late st Contact Info) Description 04/22/2025 Telephone [facility] [address] [phone] Eli Beach LPN Surgery Scheduling [...] days of surgery *Expect a call from [facility] *[employer] message sent * Telephone Encounter - Eli Beach LPN - 04/22/2025 3:08 PM EDT Spoke with patient to discuss surgery date(s)/time(s) w/ Dr. Elder. Patient is not home so she asked if she can call me back today later when she is home. She asked when I leave today, I advised 1600, if that doesn't work, I will be here [phone] tomorrow To be Scheduled: Colpectomy (vaginal closure), posterior repair, levator plication, retropubic urethral mesh sling, cystoscopy (2 hours, general, outpatient, 6 weeks off lifting/bathing) - HOME catheter removal documented in this encounter Plan of Treatment Upcoming Encounters Date Type Department Care Team (Latest Contact Info) Description 07/14/2025 1:10 PM EST Hospital Encounter [facility] [address] [place] [address] Karla Elder MD [address] [place] [address] 07/14/2025 1:10 PM EST Anesthesia Event [facility] [address] [place] [address] Naz Morales APRN [address] [place] [address] 07/14/2025 1:10 PM EST - 07/14/2025 3:35 PM EST Surgery [facility] [address] [place] [address] Karla Elder MD [address] [place] [address] TOTAL COLPECTOMY / COLPOCLESIS 08/25/2025 11:00 AM EST Office Visit [facility] [address] [phone] Erin Candelario APRN [address] [place] [address] Scheduled Orders Name Type Priority Associated Diagnoses [...]
--- OUTSIDE RECORDS SUMMARY | 2025-06-19 10:11 | XMS_ITS | Clinical Summary ---
Author Organization [facility] Address [address] [place] [phone] Phone Care Team Providers Care Projects Manager Name Role Phone Unavailable Primary Care Provider Unavailabl e Allergies No known active allergies Medications No known medications Active Problems Problem Noted Date Diagnosed Date Female genital prolapse 04/22/2025 Cystocele, midline 04/22/2025 Rectocele 04/22/2025 JACKIE (stress urinary incontinence, female) 2024 Abnormal defecation 04/22/2025 Encounters Date Type Department Care Team Description 04/22/2025 [place] [facility] [place] [address] [phone] Eli Dyson LPN Surgery Scheduling 04/20/2025 11:30 AM EDT Office Visit [facility] [place] [address] [phone] Karla Elder MD Stress incontinence (Primary Dx); Cystocele, midline 04/14/2025 7:20 AM EDT Procedure visit [facility] [address] [phone] Erin Candelario APRN Female genital prolapse, unspecified type (Primary Dx); JACKIE (stress urinary incontinence, female); OAB (overactive bladder); Urinary frequency 03/19/2025 Results Follow-Up [facility] [place] [place] [address] [phone] Karla Elder MD URINE CULTURE (NO STAIN), URINALYSIS from Last 3 Months Social History Tobacco [...] [facility] [address] [place] [address] Karla Elder MD [address] [place] [address] 07/14/2025 1:10 PM EST Anesthesia Event [facility] [address] [place] [address] Naz Morales APRN [address] [place] [address] 07/14/2025 1:10 PM EST - 07/14/2025 3:35 PM EST Surgery [facility] [address] [place] [address] Karla Elder MD [address] [place] [id number] TOTAL COLPECTOMY / COLPOCLESIS 08/25/2025 11:00 AM EST Office Visit [facility] [address] [phone] Erin Candelario, SHANIA [address] [place] [phone] Scheduled Procedures Name Priority Associated Diagnoses Date/Ti [...] 2004 Bone Density Screening 2019 COVID-19 Vaccine (2024-2 6 season) 2025 Influenza Vaccine (#1) 2025 Zoster [...] 04/14/2025 7: 37 AM EDT Urinary frequency from Last 3 Months Results * (ABNORMAL) [facility] URINALYSIS POC (04/14/2025 7:37 AM EDT) UA Color POC Yellow Color 04/14/2025 7:40 AM EDT [facility] Appear POC Clear Clear 04/14/2025 7:40 AM EDT [facility] [place] [facility] Gluc POC Negative Negative mg/dL 04/14/2025 7:40 AM EDT [facility] [place] [facility] Bili POC Negative Negative 04/14/2025 7:40 AM EDT [facility] [place] [facility] Ketones POC Negative Negative mg/dL 04/14/2025 7:40 AM EDT [facility] [place] [facility] SG POC 1.015 1.001 - 1.035 no units 04/14/2025 7:40 AM EDT [facility] [place] [facility] Blood POC Trace-Intac t(A) Negative 04/14/2025 7:40 AM EDT [facility] [place] [facility] pH POC 6.5 5.0 - 8.0 pH 04/14/2025 7:40 AM EDT [facility] [place] [facility] Protein POC Negative Negative mg/dL 04/14/2025 7:40 AM EDT [facility] [place] [facility] Urobilinogen POC 0.2 0.2, 1.0 04/14/2025 7:40 AM EDT [facility] [place] [facility] Nitrite POC Negative Negative 04/14/2025 7:40 AM EDT [facility] [place] [facility] Leuk Est POC Negative Negative 7:40 AM EDT [facility] [place] [facility] Urine STRUCTURE OF URINARY TRACT PROPER / Unknown 04/14/2025 7:37 AM EDT 04/14/2025 7:40 AM EDT Erin Candelario POOLROOM/POOLHALL MANAGER POINT OF CARE TEST ORDER TRENA Final Result [facility] [address] [place] [address] from Last 3 Months Additional Health Concerns Active Problems Noted Date Diagnosed Date Autogenerated Problem 04/23/2025 Insurance MEDICARE [place] PART A AND B [place]IC[place] PART A AND B [employer]
--- NOTE | 2025-06-19 10:12 | ECG_ITS ---
APPROVED REPORT Exam: Resting ECG HR:49 bpm ECG Measurements Heart Rate [address] 145 P 61 QRSd 101 QRS -66 QT 401 T 69 QTc 370 Conclusion SINUS BRADYCARDIA WITH MARKED SINUS ARRHYTHMIA PATTERN CONSISTENT WITH PULMONARY DISEASE LEFT ANTERIOR FASCICULAR BLOCK [QRS AXIS <= -45, QR IN I, RS IN II] ABNORMAL ECG UNCONFIRMED REPORT Electronically signed by : Dustin Reese MD 06/19/2025 21:57:21
== END 2025-06-19 23:59 | disposition home or self-care (01) ==
LOC: RT 09:57
PROVIDERS: PCP Family Medicine; Visit Provider Family Medicine
DX: Z01.810 Encounter for preprocedural cardiovascular examination (principal); I44.4 Left anterior fascicular block; I49.8 Other specified cardiac arrhythmias; R00.1 Bradycardia, unspecified; R94.31 Abnormal electrocardiogram [ECG] [EKG]
CPT/HCPCS: 93005